=== PATIENT | male | born 1945 | race Caucasian/White ===

== ENCOUNTER → 2017-04-06 | Outpatient (CLI) | payer MEDICARE ==
[2017-04-06 08:13] LABS: INR 3.5 (<1.1); Prothrombin Time 34.4 sec (9.0-12.0)
== END | disposition home or self-care (01) ==
LOC: LABWHC1 07:14
PROVIDERS: ATTEND Family Medicine
DX: Z51.81 Encounter for therapeutic drug level monitoring (principal); Z79.01 Long term (current) use of anticoagulants
CPT/HCPCS: 36415; 85610

== ENCOUNTER 2022-02-12 04:26 | Observation (INO) | payer MEDICARE ==
--- NOTE | 2022-02-12 04:54 | ED ---
Chest Pain HPI - General Chief Complaint: Chest Pain Stated Complaint: Chest Pain Time Seen by Provider: 02/12/22 04:28 Source: patient, RN notes reviewed, old records reviewed Mode of arrival: wheelchair Limitations: no limitations - History of Present Illness Initial Comments: This is a 69-year-old male DF for evaluation of chest pain. Patient is a poor historian patient has history of CAD and high cholesterol. Patient is left- sided chest pain. No shortness of breath no nausea no vomiting no fevers. No diaphoresis. No travel history or sick contacts. MD Complaint: chest pain -: hour(s) Onset: during rest, awoke with symptoms Pain Location: substernal Pain Radiation: none Severity: mild Severity scale (1-10): 2 Quality: tightness, aching Consistency: constant Improves With: nothing Worsens With: nothing Anginal Symptoms: dyspnea Other Symptoms: palpitations Treatments Prior to Arrival: none - Related Data Allergies Allergy/AdvReac Type Severity Reaction Status Date / Time No Known Allergies Allergy Verified 02/12/22 05:39 Review of Systems ROS Statement: Those systems with pertinent positive or pertinent negative responses have been documented in the HPI. ROS Other: All systems not noted in ROS Statement are negative. EKG Findings - EKG Comments: EKG Findings:: EKG is sinus rhythm 89 MS 144 QRS 79 QTc 409 Past Medical History Past Medical History: Coronary Artery Disease (CAD), Hyperlipidemia History of Any Multi-Drug Resistant Organisms: None Reported Past Surgical History: Coronary Bypass/CABG Past Psychological History: No Psychological Hx Reported Smoking Status: Former smoker Past Alcohol Use History: None Reported Past Drug Use History: None Reported General Exam Limitations: no limitations General appearance: alert, in no apparent distress Head exam: Present: atraumatic, normocephalic, normal inspection Eye exam: Present: normal appearance, PERRL, EOMI. Absent: scleral icterus, conjunctival injection, periorbital swelling ENT exam: Present: normal exam, mucous membranes moist Neck exam: Present: normal inspection. Absent: tenderness, meningismus, lymphadenopathy Respiratory exam: Present: normal lung sounds bilaterally. Absent: respiratory distress, wheezes, rales, rhonchi, stridor Cardiovascular Exam: Present: regular rate, normal rhythm, normal heart sounds. Absent: systolic murmur, diastolic murmur, rubs, gallop, clicks GI/Abdominal exam: Present: soft, normal bowel sounds. Absent: distended, tenderness, guarding, rebound, rigid Extremities exam: Present: normal inspection, full ROM, normal capillary refill. Absent: tenderness, pedal edema, joint swelling, calf tenderness Back exam: Present: normal inspection Neurological exam: Present: alert, oriented X3, CN II-XII intact Psychiatric exam: Present: normal affect, normal mood Skin exam: Present: warm, dry, intact, normal color. Absent: rash Course Vital Signs 02/12/22 02/12/22 02/12/22 04:37 05:02 06:17 Temperature 97.9 F Pulse Rate 76 90 95 Respiratory 16 22 18 Rate Blood Pressure 157/96 145/96 146/91 O2 Sat by Pulse 98 100 100 Oximetry - Reevaluation(s) Reevaluation #1: 02/12/22 06:45 Medical record is reviewed Reevaluation #2: 02/12/22 06:45 Patient still with chest pain here in the ER Reevaluation #3: 02/12/22 06:45 Patient informed of results and questions answered - Consultations Consultation #1: Spoke with Dr. Atwood who agrees to admit this patient Chest Pain MDM - MDM 29 male DF for chest pain left-sided chest pain over left heart. Patient does have tenderness to palpation but doesn't mild troponin leak patient is on anticoagulation will, patient will be admitted for chest pain observation Critical Care Time Critical Care Time: Yes Total Critical Care Time: 31 Disposition Clinical Impression: Chest pain Disposition: ADMITTED IP TO THIS [facility] Condition: Undetermined Is patient prescribed a controlled substance at d/c from ED?: No Referrals: Eliecer Sloan MD [Primary Care Provider] - 1-2 days
--- NOTE | 2022-02-12 05:37 | XR ---
EXAMINATION TYPE: XR chest 2V DATE OF EXAM: 02/12/2022 COMPARISON: 11/12/2010 HISTORY: Chest pain TECHNIQUE: FINDINGS: There is pulmonary hyperinflation with flattening of the diaphragm. There are sternal wires. Heart si ze is normal. Costophrenic angles are clear. There are chest leads. There are no hilar masses. There is osteopenia and thoracic mild kyphotic deformity. There is anterior wedging of thoracic vertebra. IMPRESSION: COPD. No acute lung disease. No adverse change.
[2022-02-12 05:55] LABS: ALT 26 U/L (4-49); AST 44 U/L (17-59); African American GFR (CKD) >90 (>60 ml/min/1.73 sqM); Albumin 4.3 g/dL (3.5-5.0); Alkaline Phosphatase 155 U/L (38-126); Anion Gap 9 mmol/L; Blood Urea Nitrogen 12 mg/dL (9-20); Carbon Dioxide 25 mmol/L (22-30); Chloride 104 mmol/L (98-107); Glucose 97 mg/dL (74-99); Lipase 253 U/L (23-300); Magnesium 2.1 mg/dL (1.6-2.3); Non-African American GFR(CKD) 84 (>60 ml/min/1.73 sqM); Sodium 138 mmol/L (137-145); Total Bilirubin 0.5 mg/dL (0.2-1.3); Total Protein 7.2 g/dL (6.3-8.2)
[2022-02-12 06:01] LABS: Basophils # (A) 0.1 k/uL (0-0.2); Basophils % (A) 1 %; Eosinophils # (A) 0.2 k/uL (0-0.7); Eosinophils % (A) 2 %; HCT 46.1 % (39.0-53.0); HGB 15.1 gm/dL (13.0-17.5); Lymphocytes # (A) 1.6 k/uL (1.0-4.8); Lymphocytes % (A) 23 %; MCH 32.5 pg (25.0-35.0); MCHC 32.8 g/dL (31.0-37.0); MCV 99.3 fL (80.0-100.0); Mean Platelet Volume 9.1; Monocytes # (A) 0.5 k/uL (0-1.0); Monocytes % (A) 7 %; Neutrophils # (A) 4.3 k/uL (1.3-7.7); Neutrophils % (A) 64 %; Platelet Count 270 k/uL (150-450); RBC 4.64 m/uL (4.30-5.90); RDW 13.5 % (11.5-15.5); WBC 6.7 k/uL (3.8-10.6)
[2022-02-12 06:19] VITALS: RESP 18
[2022-02-12 06:38] LABS: INR 2.1 (<1.2); Partial Thromboplastin Time 28.6 sec (22.0-30.0); Prothrombin Time 21.4 sec (9.0-12.0)
[2022-02-12] MEDS ORDERED: NITROGLYCERIN SL TABS 0.4 MG TAB SUBLINGUAL PRN (06:44)
[2022-02-12] MEDS ORDERED: ASPIRIN 81 MG PO STA (06:44)
[2022-02-12] MEDS ORDERED: MORPHINE SULFATE 4 MG/ML SYRINGE IV PRN (06:44)
[2022-02-12] MEDS ORDERED: SODIUM CHLORIDE 0.9% 1,000 ML IV SCH (06:45)
[2022-02-12 08:17] VITALS: BP 155/84; PULSE 73; TEMP 98.2
[2022-02-12] MEDS ORDERED: lisinopriL 10 MG TAB PO SCH (09:00)
[2022-02-12] MEDS ORDERED: amLODIPine 2.5 MG TAB PO SCH (09:00)
--- NOTE | 2022-02-12 10:06 | P.CRDCN ---
History of Present Illness History of present illness: HISTORY OF PRESENT ILLNESS: This is a 77-year-old male with a past medical history significant for coronary artery disease with previous CABG, seizure disorder, hypertension, and long-term anticoagulation (patient is unsure of reason). Patient has not been seen in the office since 2012. We have been asked to see the patient in consultation for chest pain. Patient examined at the bedside. Patient states yesterday he began having pain on the left side of his chest. He denied any radiation of the pain denied any shortness of breath. He reports the pain is worse with deep inspiration. He also reports the pain is worse with chest wall palpation. The patient does report having a history of a CABG. He is unsure of what year this was performed and is unsure how many vessels he had performed as well. Patient is also prescribed warfarin on an outpatient basis. The patient is unsure why he is taking this. He denied a history of atrial fibrillation, DVT, or PE. * EKG reveals sinus mechanism with nonspecific ST-T wave changes * Chest xray COPD. No acute lung disease. * Laboratory data: WBC 6.7. Hemoglobin 15.1. Platelet count 270. Sodium 138. Potassium 4.0. BUN 12. Creatinine 0.84. Magnesium 2.1. Troponin negative 2. * Current home cardiac medications include amlodipine 2.5 mg daily, and warfarin 5 mg at night REVIEW OF SYSTEMS: At the time of my exam: CONSTITUTIONAL: Denies fever or chills. HEENT: Denies blurred vision, vision changes, or eye pain. Denies hemoptysis CARDIOVASCULAR: Denies chest pain. Denies orthopnea. Denies PND. Denies palpitations RESPIRATORY: Denies shortness of breath. GASTROINTESTINAL: Denies abdominal pain. Denies nausea or vomiting. HEMATOLOGIC: Denies bleeding disorders. GENITOURINARY: Denies any blood in urine. SKIN: Denies pruitis. Denies rash. PHYSICAL EXAM: VITAL SIGNS: Reviewed. GENERAL: Well-developed in no acute distress. HEENT: Head is normocephalic. Pupils are equal, round. Sclerae anicteric. Mucous membranes of the mouth are moist. Neck supple. No JVD or thyromegaly LUNGS: Respirations even and unlabored. Lungs essentially clear to auscultation bilaterally. HEART: Regular rate and rhythm. S1 and S2 heard. ABDOMEN: Soft. Nondistended. Nontender. EXTREMITIES: Normal range of motion. No clubbing or cyanosis. Peripheral pulses intact. No lower extremity edema NEUROLOGIC: Awake and alert. Oriented x 3. ASSESSMENT: Chest pain, atypical, troponin negative 2, reproducible, pleuritic in nature Coronary artery disease with previous CABG, exact details unknown Long-term anticoagulation, reason unknown to patient Hypertension Seizure disorder PLAN: An acute coronary event has been ruled out Per Dr. Schuler, no need to obtain echo Resume home cardiac medications Begin aspirin 81 mg daily, atorvastatin 20 mg at night, lisinopril 10 mg daily Obtain d-dimer Obtain lipid panel No further inpatient recommendations from a cardiac standpoint. Patient may follow up on an outpatient basis when he is discharged. Nurse practitioner note has been reviewed by physician. Signing provider agrees with the documented findings, assessment, and plan of care. Past Medical History Past Medical History: Coronary Artery Disease (CAD), Hyperlipidemia History of Any Multi-Drug Resistant Organisms: None Reported Past Surgical History: Coronary Bypass/CABG Past Psychological History: No Psychological Hx Reported Smoking Status: Former smoker Past Alcohol Use History: None Reported Past Drug Use History: None Reported - Past Family History Father Family Medical History: Coronary Artery Disease (CAD) Additional Family Medical History / Comment(s): CABG Mother Family Medical History: No Reported History Medications and Allergies Home Medications Medication Instructions Recorded Confirmed Type ALPRAZolam [Xanax] 0.5 mg PO TID PRN 02/12/22 02/12/22 History Ascorbic Acid [Vitamin C] 1,000 mg PO DAILY 02/12/22 02/12/22 History Famotidine [Pepcid] 20 mg PO DAILY 02/12/22 02/12/22 History [place]-3 Fatty Acids [[place]-3] 1,000 mg PO DAILY 02/12/22 02/12/22 History Phenytoin Sodium Extended 200 mg PO BID 02/12/22 02/12/22 History [Dilantin] Tamsulosin HCl [Flomax] 0.4 mg PO DAILY 02/12/22 02/12/22 History Turmeric Root Extract [Turmeric] 500 mg PO DAILY 02/12/22 02/12/22 History Vitamin A [Vitamin A (8,000 Units 2,400 mcg PO DAILY 02/12/22 02/12/22 History = 2,400 MCG)] Vitamin E (Dl,Tocopheryl Acet) 400 unit PO DAILY 02/12/22 02/12/22 History [Vitamin E (400 Iu = 180 mg)] Warfarin [Coumadin] 5 mg PO HS 02/12/22 02/12/22 History amLODIPine [Norvasc] 2.5 mg PO DAILY 02/12/22 02/12/22 History Allergies Allergy/AdvReac Type Severity Reaction Status Date / Time No Known Allergies Allergy Verified 02/12/22 07:39 Physical Exam Vitals: Vital Signs Temp Pulse Resp BP Pulse Ox 02/12/22 07:27 78 18 153/93 97 02/12/22 06:17 95 18 146/91 100 02/12/22 05:02 90 22 145/96 100 02/12/22 04:37 97.9 F 76 16 157/96 98 Intake and Output 02/11/22 02/12/22 02/12/22 22:59 06:59 14:59 Other: Weight 63.049 kg Results 02/12/22 04:52 02/12/22 04:52 Cardiac Enzymes 02/12/22 02/12/22 Range/Units 04:52 04:52 AST 44 (17-59) U/L Troponin I 0.014 (0.000-0.034) ng/mL Coagulation 02/12/22 Range/Units 04:52 PT 21.4 H (9.0-12.0) sec APTT 28.6 (22.0-30.0) sec CBC 02/12/22 Range/Units 04:52 WBC 6.7 (3.8-10.6) k/uL RBC 4.64 (4.30-5.90) m/uL Hgb 15.1 (13.0-17.5) gm/dL Hct 46.1 (39.0-53.0) % Plt Count 270 (150-450) k/uL Comprehensive Metabolic Panel 02/12/22 Range/Units 04:52 Sodium 138 (137-145) mmol/L Potassium 4.0 (3.5-5.1) mmol/L Chloride 104 (98-107) mmol/L Carbon Dioxide 25 (22-30) mmol/L BUN 12 (9-20) mg/dL Creatinine 0.84 (0.66-1.25) mg/dL Glucose 97 (74-99) mg/dL Calcium 9.0 (8.4-10.2) mg/dL AST 44 (17-59) U/L ALT 26 (4-49) U/L Alkaline Phosphatase 155 H (38-126) U/L Total Protein 7.2 (6.3-8.2) g/dL Albumin 4.3 (3.5-5.0) g/dL Current Medications Generic Name Dose Route Start Last Admin Trade Name Freq PRN Reason Stop Dose Admin Aspirin 325 mg 02/13/22 09:00 Aspirin 325 Mg Tab PO DAILY ROYAL Sodium Chloride 1,000 mls @ 100 mls/hr 02/12/22 06:45 02/12/22 07:08 Saline 0.9% IV 100 mls/hr .Q10H ROYAL Administration Morphine Sulfate 4 mg 02/12/22 06:44 02/12/22 07:06 Morphine Sulfate 4 Mg/Ml Syringe IV 4 mg Q4HR PRN Administration Chest Pain Nitroglycerin 0.4 mg 02/12/22 06:44 Nitroglycerin Sl Tabs 0.4 Mg Tab SUBLINGUAL Q5M PRN Chest Pain Intake and Output 02/11/22 02/12/22 02/12/22 22:59 06:59 14:59 Other: Weight 63.049 kg 02/12/22 04:52 02/12/22 04:52
--- NOTE | 2022-02-12 13:36 | P.HPIM ---
History of Present Illness H&P Date: 02/12/22 (This document was of both his H&P and discharge summary) History of present illness 77 years old male patient of Dr. Sloan with past medical history of coronary artery disease with previous coronary artery bypass grafting, seizure disorder, hypertension and long-term anticoagulation unknown reason no previous hospital admissions came in with chest pain that started after his job jumped on his chest. Chest pain is located in the left substernal area, pressure-like sensation nonradiating, not associated with shortness of breath. Patient denies any pain with inspiration. He has not been seen by cardiology since 2012. EKG suggestive of sinus rhythm with nonspecific ST or T-wave changes. Chest x-ray negative for acute lung process. Labs were evaluated hemoglobin 15, WBC 6.7 platelet 270 sodium 138 potassium 4 BUN 12 creatinine 0.8 magnesium 2.1 troponin 2 normal. ROS Constitutional: Denies chills, Denies fever, Denies lethargy, Denies malaise, Denies poor appetite, Denies weakness, Denies weight loss Eyes: denies decreased vision, denies diplopia, denies discharge, denies pain Ears: deny: decreased hearing Ears, nose, mouth and throat: Denies dental pain, Denies headache, Denies nasal discharge, Denies nose pain Cardiovascular: Endorses chest pain, Denies decreased exercise tolerance, Denies edema, Denies high blood pressure, Denies irregular heart beat, Denies palpitations, Denies paroxysmal nocturnal dyspnea, Denies rapid heart beat, Denies shortness of breath Respiratory: Denies congestion, Denies cough, Denies cough with sputum, Denies dyspnea, Denies home oxygen, Denies wheezing Gastrointestinal: Denies abdominal pain, Denies change in bowel habits, Denies coffee ground emesis, Denies early satiety, Denies excessive gas, Denies heartburn, Denies hematemesis, Denies hematochezia, Denies loss of appetite, Denies nausea, Denies vomiting Genitourinary: Denies dysuria, Denies flank pain, Denies kidney stones, Denies menorrhagia, Denies urgency, Denies urinary frequency Musculoskeletal: Denies gait dysfunction, Denies limitation of motion, Denies morning stiffness, Denies muscle cramps Integumentary: Denies rash, Denies wounds, Denies brittle nails, Denies change in hair/nails, Denies darkening of skin Neurological: Denies balance difficulties, Denies change in speech, Denies double vision, Denies gait dysfunction, Denies loss of vision, Denies motor disturbance, Denies numbness, Denies paralysis, Denies paresthesias, Denies seizures Psychiatric: Denies anxiety, Denies depression Endocrine: Denies excessive sweating, Denies excessive thirst, Denies high blood sugars, Denies palpitations Hematologic/Lymphatic: Denies easy bruising, Denies lymphadenopathy Social history Nonsmoker nondrinker no illicit drug use no marijuana use Family history Mother of old age in her 80s, father of old age. No significant medical history. Sister is healthy. Patient has 1 son who is healthy Physical exam - Constitutional General appearance: cooperative, no acute distress, thin - EENT Eyes: anicteric sclerae, PERRLA, normal appearance ENT: hearing grossly normal - Neck Neck: no lymphadenopathy, normal ROM, no other, no rigidity, no stridor, no thyromegaly - Respiratory Respiratory: bilateral: CTA, negative: diminished, dullness, rales, rhonchi, tender to touch - Cardiovascular Rhythm: regular Heart sounds: normal: S1, S2 Abnormal Heart Sounds: no systolic murmur, no diastolic murmur, no rub, no S3 Gallop, no S4 Gallop, no click, no other - Gastrointestinal General gastrointestinal: normal bowel sounds, soft - Integumentary Integumentary: no rash - Neurologic Neurologic: No gross motor or sensory deficit - Musculoskeletal Musculoskeletal: gait normal, strength equal bilaterally - Psychiatric Psychiatric: A&O x's 3, appropriate affect Assessment and plan #1 acute chest pain likely atypical secondary to trauma. ACS ruled out. Troponin 2 negative EKG negative for STEMI. Initiated on aspirin, Lipitor and lisinopril. Follow up with cardiology as outpatient. #2 hypertension blood pressure uncontrolled. Lisinopril 10 mg by mouth daily added continue Norvasc at 2.5 mg by mouth daily #3 seizure disorder continue Dilantin 200 mg twice daily #4 BPH continue Flomax 0.4 mg daily. 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 unknown reason #6 GERD Pepcid 20 mg by mouth daily CODE STATUS full code Disposition home today Past Medical History Past Medical History: Coronary Artery Disease (CAD), Hyperlipidemia Additional Past Medical History / Comment(s): DVT, seizures/last one 2008, diverticular disease, colon polyps-benign, celiac's disease, BPH, bronchitis, pt states L leg feels "heavy past couple years." History of Any Multi-Drug Resistant Organisms: None Reported Past Surgical History: Coronary Bypass/CABG Additional Past Surgical History / Comment(s): 1994 CABG 2 vessel, L side of neck "filter"/pt and family states d/t blood clot, EGD, colonoscopies, hemorrhoidectomy, L inguinal hernia repair, bilateral shoulder surgeries (pt states shoulders use to dislocate when he had a seizure, L eye cat removed. Past Anesthesia/Blood Transfusion Reactions: No Reported Reaction Past Psychological History: No Psychological Hx Reported Smoking Status: Former smoker Past Alcohol Use History: None Reported Past Drug Use History: None Reported - Past Family History Father Family Medical History: Coronary Artery Disease (CAD) Additional Family Medical History / Comment(s): CABG Mother Family Medical History: No Reported History Medications and Allergies Home Medications Medication Instructions Recorded Confirmed Type ALPRAZolam [Xanax] 0.5 mg PO TID PRN 02/12/22 02/12/22 History Ascorbic Acid [Vitamin C] 1,000 mg PO DAILY 02/12/22 02/12/22 History Aspirin 81 mg PO DAILY 02/12/22 Rx Atorvastatin [Lipitor] 20 mg PO HS #30 tab 02/12/22 Rx Famotidine [Pepcid] 20 mg PO DAILY 02/12/22 02/12/22 History [place]-3 Fatty Acids [[place]-3] 1,000 mg PO DAILY 02/12/22 02/12/22 History Phenytoin Sodium Extended 200 mg PO BID 02/12/22 02/12/22 History [Dilantin] Tamsulosin HCl [Flomax] 0.4 mg PO DAILY 02/12/22 02/12/22 History Turmeric Root Extract [Turmeric] 500 mg PO DAILY 02/12/22 02/12/22 History Vitamin A [Vitamin A (8,000 Units 2,400 mcg PO DAILY 02/12/22 02/12/22 History = 2,400 MCG)] Vitamin E (Dl,Tocopheryl Acet) 400 unit PO DAILY 02/12/22 02/12/22 History [Vitamin E (400 Iu = 180 mg)] Warfarin [Coumadin] 5 mg PO HS 02/12/22 02/12/22 History amLODIPine [Norvasc] 2.5 mg PO DAILY 02/12/22 02/12/22 History lisinopriL [Zestril] 10 mg PO DAILY #30 tab 02/12/22 Rx Allergies Allergy/AdvReac Type Severity Reaction Status Date / Time No Known Allergies Allergy Verified 02/12/22 07:39 Physical Exam Vitals: Vital Signs Temp Pulse Pulse Resp BP BP Pulse Ox 02/12/22 08:16 98.2 F 73 18 155/84 99 02/12/22 07:27 78 18 153/93 97 02/12/22 06:17 95 18 146/91 100 02/12/22 05:02 90 22 145/96 100 02/12/22 04:37 97.9 F 76 16 157/96 98 Intake and Output 02/11/22 02/12/22 02/12/22 22:59 06:59 14:59 Other: Weight 63.049 kg 63.049 kg Results CBC & Chem 7: 02/12/22 04:52 02/12/22 04:52 Labs: Abnormal Lab Results - Last 24 Hours (Table) 02/12/22 02/12/22 Range/Units 04:52 04:52 PT 21.4 H (9.0-12.0) sec INR 2.1 H (<1.2) Alkaline Phosphatase 155 H (38-126) U/L Thrombosis Risk Factor Assmnt - Choose All That Apply Any of the Below Risk Factors Present?: Yes Other Risk Factors: Yes Each Risk Factor Represents 3 Points: Age 75 years or older, History of DVT/PE Other congenital or acquired thrombophilia - If yes, enter type in comment: No Thrombosis Risk Factor Assessment Total Risk Factor Score: 6 Thrombosis Risk Factor Assessment Level: High Risk
[2022-02-12] MEDS ORDERED: ATORVASTATIN 20 MG TAB PO SCH (21:00)
[2022-02-12] MEDS ORDERED: WARFARIN 5 MG TAB PO SCH (21:00)
[2022-02-13] MEDS ORDERED: ASPIRIN 81 MG PO SCH (09:00)
[2022-02-13] MEDS ORDERED: ASPIRIN 325 MG TAB PO SCH (09:00)
== END 2022-02-12 13:13 | disposition home or self-care (01) ==
LOC: EC 04:26 → 6NMEDSUR 06:44
PROVIDERS: ADMIT Internal Medicine Geriatric Medicine; ATTEND Internal Medicine Geriatric Medicine
DX: R07.89 Other chest pain (principal); I25.10 Atherosclerotic heart disease of native coronary artery without angina pectoris; I10 Essential (primary) hypertension; J44.9 Chronic obstructive pulmonary disease, unspecified; E78.00 Pure hypercholesterolemia, unspecified; E78.5 Hyperlipidemia, unspecified; R00.2 Palpitations; G40.909 Epilepsy, unspecified, not intractable, without status epilepticus; K90.0 Celiac disease; N40.0 Benign prostatic hyperplasia without lower urinary tract symptoms; K21.9 Gastro-esophageal reflux disease without esophagitis; K57.90 Diverticulosis of intestine, part unspecified, without perforation or abscess without bleeding; Z79.01 Long term (current) use of anticoagulants; Z79.899 Other long term (current) drug therapy; Z95.1 Presence of aortocoronary bypass graft; Z86.010 Personal history of colon polyps; Z87.891 Personal history of nicotine dependence; Z86.718 Personal history of other venous thrombosis and embolism; Z98.42 Cataract extraction status, left eye; Z95.828 Presence of other vascular implants and grafts; Z98.890 Other specified postprocedural states; Z82.49 Family history of ischemic heart disease and other diseases of the circulatory system
CPT/HCPCS: 96374; 99291; 36415; 93005; 85379; 83880; 80053; 83690; 83735; 84484; 85025; 85610; 85730; 83036; 71046; G0378; J2270

== ENCOUNTER 2023-07-15 23:05 | Observation (INO) | payer MEDICARE ==
[2023-07-15] MEDS ORDERED: SODIUM CHLORIDE 0.9% 1,000 ML IV STA (23:23)
--- NOTE | 2023-07-15 23:38 | ED ---
Syncope HPI - General Chief Complaint: Syncope Stated Complaint: Syncope Time Seen by Provider: 07/15/23 23:23 Source: patient, EMS, RN notes reviewed, old records reviewed Mode of arrival: EMS Limitations: no limitations - History of Present Illness Initial Comments: This is a 78-year-old male who presents after a syncopal event today. Patient has not been seen by family for about 5 days the daughter went over to stay in the patient passed out when she entered the door. He became very lightheaded dizzy with the ground but retained consciousness. Patient admits to severe weakness but denies chest pain or shortness of breath does admit to headache. Family does think he may have a little slurred speech but states they did neurological testing at home which they believe was normal mother does work for a neurologist in town. Patient aside from weakness has no current complaints MD Complaint: loss of consciousness, collapsed (But did not loose faculties) -: hour(s) Prodromal Symptoms: headache, lightheaded Description of Event: other (A shunt does have seizure-like patient does have seizure history but no seizure-like activity today) -: second(s) Witnessed: yes - by bystander History: seizure disorder, previous syncopal episode Context: during exertion Treatments Prior to Arrival: none - Related Data Home Medications Medication Instructions Recorded Confirmed Famotidine [Pepcid] 20 mg PO BID 02/12/22 07/16/23 Phenytoin Sodium Extended 200 mg PO BID 02/12/22 07/16/23 [Dilantin] Tamsulosin HCl [Flomax] 0.8 mg PO DAILY 02/12/22 07/16/23 amLODIPine [Norvasc] 2.5 mg PO DAILY 02/12/22 07/16/23 Previous Rx's Medication Instructions Recorded Atorvastatin [Lipitor] 20 mg PO HS #30 tab 02/12/22 Apixaban [Eliquis] 5 mg PO BID #60 tab 07/17/23 Allergies Allergy/AdvReac Type Severity Reaction Status Date / Time gluten Allergy Nausea & Verified 07/17/23 10:51 Vomiting & Diarrhea Review of Systems ROS Statement: Those systems with pertinent positive or pertinent negative responses have been documented in the HPI. ROS Other: All systems not noted in ROS Statement are negative. Past Medical History Past Medical History: Coronary Artery Disease (CAD), Hyperlipidemia Additional Past Medical History / Comment(s): DVT, seizures/last one 2008, di verticular disease, colon polyps-benign, celiac's disease, BPH, bronchitis, pt states L leg feels "heavy past couple years." History of Any Multi-Drug Resistant Organisms: None Reported Past Surgical History: Coronary Bypass/CABG Additional Past Surgical History / Comment(s): 1994 CABG 2 vessel, L side of neck "filter"/pt and family states d/t blood clot, EGD, colonoscopies, hemorrhoidectomy, L inguinal hernia repair, bilateral shoulder surgeries (pt states shoulders use to dislocate when he had a seizure, L eye cat removed. Past Anesthesia/Blood Transfusion Reactions: No Reported Reaction Past Psychological History: No Psychological Hx Reported Smoking Status: Former smoker Past Alcohol Use History: None Reported Past Drug Use History: None Reported - Past Family History Father Family Medical History: Coronary Artery Disease (CAD) Additional Family Medical History / Comment(s): CABG Mother Family Medical History: No Reported History General Exam Limitations: no limitations General appearance: alert, in no apparent distress, anxious Head exam: Present: atraumatic, normocephalic, normal inspection Eye exam: Present: normal appearance, PERRL, EOMI. Absent: scleral icterus, conjunctival injection, periorbital swelling ENT exam: Present: normal exam, mucous membranes moist Neck exam: Present: normal inspection. Absent: tenderness, meningismus, lymphadenopathy Respiratory exam: Present: normal lung sounds bilaterally. Absent: respiratory distress, wheezes, rales, rhonchi, stridor Cardiovascular Exam: Present: regular rate, normal rhythm, normal heart sounds. Absent: systolic murmur, diastolic murmur, rubs, gallop, clicks GI/Abdominal exam: Present: soft, normal bowel sounds. Absent: distended, tenderness, guarding, rebound, rigid Extremities exam: Present: normal inspection, full ROM, normal capillary refill. Absent: tenderness, pedal edema, joint swelling, calf tenderness Back exam: Present: normal inspection Neurological exam: Present: alert, oriented X3, CN II-XII intact Psychiatric exam: Present: normal affect, normal mood Skin exam: Present: warm, dry, intact, normal color. Absent: rash Course Vital Signs 07/15/23 07/16/23 07/16/23 23:18 00:20 02:35 Temperature 97.6 F Pulse Rate 61 61 60 Pulse Rate [ Pulse Oximetery ] Respiratory 18 16 16 Rate Blood Pressure 170/82 149/75 138/79 Blood Pressure [Right Arm] O2 Sat by Pulse 98 98 97 Oximetry 07/16/23 07/16/23 07/16/23 04:00 06:00 08:14 Temperature Pulse Rate 60 53 L Pulse Rate [ Pulse Oximetery ] Respiratory 16 Rate Blood Pressure 114/69 137/77 Blood Pressure 148/82 [Right Arm] O2 Sat by Pulse 98 Oximetry 07/16/23 07/16/23 07/16/23 08:16 08:18 08:36 Temperature Pulse Rate 68 Pulse Rate [ Pulse Oximetery ] Respiratory 18 Rate Blood Pressure 148/82 Blood Pressure 129/88 144/85 [Right Arm] O2 Sat by Pulse 97 Oximetry 07/16/23 07/16/23 07/16/23 11:23 14:15 14:18 Temperature 98.6 F Pulse Rate 58 L 54 L 71 Pulse Rate [ Pulse Oximetery ] Respiratory 18 16 18 Rate Blood Pressure 106/86 135/76 Blood Pressure [Right Arm] O2 Sat by Pulse 97 96 93 L Oximetry 07/16/23 14:22 Temperature 97.3 F L Pulse Rate Pulse Rate [ 54 L Pulse Oximetery ] Respiratory 17 Rate Blood Pressure Blood Pressure 135/76 [Right Arm] O2 Sat by Pulse 97 Oximetry - Reevaluation(s) Reevaluation #1: 07/16/23 00:35 Medical records reviewed 07/16/23 00:35 Patient is not code stroke secondary to NIH of 0 Unknown onset of symptoms Reevaluation #2: 07/16/23 00:35 Patient has no real Reevaluation #3: 07/16/23 00:35 Patient informed results and questions answered Reevaluation #4: 07/16/23 00:35 Was pt. sent in by a medical professional or institution (, PA, POWERTR[employer] CONTROL SYSTEMS ENGINEER, urgent care, hospital, or care home...) When possible be specific @ -no Did you speak to anyone other than the patient for history (EMS, parent, family, police, friend...)? What history was obtained from this source @ -no Did you review nursing and triage notes (agree or disagree)? Why? @ -agree Are old charts reviewed (outside hosp., previous admission, EMS record, old EKG, old radiological studies, urgent care reports/EKG's, care home records)? Report findings @ -yes Differential Diagnosis (chest pain, altered mental status, abdominal pain women, abdominal pain men, vaginal bleeding, weakness, fever, dyspnea, syncope, headache, dizziness, GI bleed, back pain, seizure, CVA, palpatations, mental health, musculoskeletal)? @ -prior EKG interpreted by me (3pts min.). @ -yes X-rays interpreted by me (1pt min.). @ -yes CT interpreted by me (1pt min.). @ -yes U/S interpreted by me (1pt. min.). @ -no What testing was considered but not performed or refused? (CT, X-rays, U/S, labs)? Why? @ -none What meds were considered but not given or refused? Why? @ -none Did you discuss the management of the patient with other professionals (harper aburto i.e. , PA, POWERTR[employer] SYSTEMS ENGINEER, lab, RT, psych nurse, social studies teacher, art department head, teacher, civil preparedness training officer, medical case worker)? Give summary @ -no Was smoking cessation discussed for >3mins.? @ -no Was critical care preformed (if so, how long)? @ -yes31 Were there social determinants of health that impacted care today? How? (Homelessness, low income, unemployed, alcoholism, drug addiction, transportation, low edu. Level, literacy, decrease access to med. care, [facility], rehab)? @ -none Was there de-escalation of care discussed even if they declined (Discuss DNR or withdrawal of care, Hospice)? DNR status @ -no What co-morbidities impacted this encounter? (DM, HTN, Smoking, COPD, CAD, Cancer, CVA, ARF, Chemo, Hep., AIDS, mental health diagnosis, sleep apnea, morbid obesity)? @ -none Was patient admitted / discharged? Hospital course, mention meds given and route, prescriptions, significant lab abnormalities, going to OR and other pertinent info. @ - 78 male to the emergency department will be admitted with a syncopal event, patient also has some slurred speech it waxed and waned. History of stroke, patient be admitted for neurology evaluation and treatment. Admitted Undiagnosed new problem with uncertain prognosis? @ -no Drug Therapy requiring intensive monitoring for toxicity (Heparin, Nitro, Insulin, Cardizem)? @ -no Were any procedures done? @ -no Diagnosis/symptom? @ -Syncope, CVA Acute, or Chronic? @ -Acute Uncomplicated (without systemic symptoms) or Complicated (systemic symptoms)? @ -Complicated Side effects of treatment? @ -no Exacerbation, Progression, or Severe Exacerbation? @ -exacerbation Poses a threat to life or bodily function? How? (Chest pain, USA, ME, pneumonia, PE, COPD, DKA, ARF, appy, cholecystitis, CVA, Diverticulitis, Homicidal, Suicidal, threat to staff... and all critical care pts) @ -yes with severe syncopal event or CVA Reevaluation #5: 07/16/23 00:35 Differential Syncope: Valvular disease, hypertrophic cardiomyopathy, pulmonary embolism, tamponade, tachycardia, bradycardia, ME, hypovolemia, hemorrhage, dissection, anemia, intracranial hemorrhage, seizure, hypoglycemia, carbon monoxide poisoning, this is not meant to be an all-inclusive list. - Consultations Consultation #1: Spoke with [facility] who agree to admit this patient EKG Findings - EKG Comments: EKG Findings:: EKG is sinus 61 SD 132 QRS 105 QTC 393 - EKG Results: EKG: interpreted by KRISTEN Medical Decision Making - Medical Decision Making 78 male to the emergency department will be admitted with a syncopal event, patient also has some slurred speech it waxed and waned. History of stroke, patient be admitted for neurology evaluation and treatment. - Lab Data Result diagrams: 07/15/23 23:34 07/17/23 06:42 Lab Results 07/15/23 07/15/23 07/15/23 Range/Units 23:34 23:34 23:34 WBC 8.2 (3.8-10.6) k/uL RBC 4.20 L (4.30-5.90) m/uL Hgb 13.1 (13.0-17.5) gm/dL Hct 40.7 (39.0-53.0) % MCV 97.0 (80.0-100.0) fL MCH 31.1 (25.0-35.0) pg MCHC 32.1 (31.0-37.0) g/dL RDW 13.8 (11.5-15.5) % Plt Count 197 (150-450) k/uL MPV 8.9 Neutrophils % 71 % Lymphocytes % 19 % Monocytes % 6 % Eosinophils % 2 % Basophils % 0 % Neutrophils # 5.8 (1.3-7.7) k/uL Lymphocytes # 1.6 (1.0-4.8) k/uL Monocytes # 0.5 (0-1.0) k/uL Eosinophils # 0.1 (0-0.7) k/uL Basophils # 0.0 (0-0.2) k/uL PT 11.7 (9.0-12.0) sec INR 1.1 (<1.2) APTT 25.1 (22.0-30.0) sec D-Dimer 0.50 (<0.60) mg/L FEU Sodium 141 (137-145) mmol/L Potassium 3.9 (3.5-5.1) mmol/L Chloride 114 H (98-107) mmol/L Carbon Dioxide 18 L (22-30) mmol/L Anion Gap 9 mmol/L BUN 17 (9-20) mg/dL Creatinine 0.91 (0.66-1.25) mg/dL Est GFR (CKD-EPI)AfAm >90 (>60 ml/min/1.73 sqM) Est GFR (CKD-EPI)NonAf 80 (>60 ml/min/1.73 sqM) Glucose 104 H (74-99) mg/dL Calcium 7.9 L (8.4-10.2) mg/dL Magnesium 2.0 (1.6-2.3) mg/dL Total Bilirubin 0.2 (0.2-1.3) mg/dL AST 27 (17-59) U/L ALT 17 (4-49) U/L Alkaline Phosphatase 100 (38-126) U/L Troponin I (0.000-0.034) ng/mL Total Protein 6.5 (6.3-8.2) g/dL Albumin 3.8 (3.5-5.0) g/dL 07/15/23 Range/Units 23:34 WBC (3.8-10.6) k/uL RBC (4.30-5.90) m/uL Hgb (13.0-17.5) gm/dL Hct (39.0-53.0) % MCV (80.0-100.0) fL MCH (25.0-35.0) pg MCHC (31.0-37.0) g/dL RDW (11.5-15.5) % Plt Count (150-450) k/uL MPV Neutrophils % % Lymphocytes % % Monocytes % % Eosinophils % % Basophils % % Neutrophils # (1.3-7.7) k/uL Lymphocytes # (1.0-4.8) k/uL Monocytes # (0-1.0) k/uL Eosinophils # (0-0.7) k/uL Basophils # (0-0.2) k/uL PT (9.0-12.0) sec INR (<1.2) APTT (22.0-30.0) sec D-Dimer (<0.60) mg/L FEU Sodium (137-145) mmol/L Potassium (3.5-5.1) mmol/L Chloride (98-107) mmol/L Carbon Dioxide (22-30) mmol/L Anion Gap mmol/L BUN (9-20) mg/dL Creatinine (0.66-1.25) mg/dL Est GFR (CKD-EPI)AfAm (>60 ml/min/1.73 sqM) Est GFR (CKD-EPI)NonAf (>60 ml/min/1.73 sqM) Glucose (74-99) mg/dL Calcium (8.4-10.2) mg/dL Magnesium (1.6-2.3) mg/dL Total Bilirubin (0.2-1.3) mg/dL AST (17-59) U/L ALT (4-49) U/L Alkaline Phosphatase (38-126) U/L Troponin I <0.012 (0.000-0.034) ng/mL Total Protein (6.3-8.2) g/dL Albumin (3.5-5.0) g/dL - EKG Data -: EKG Interpreted by Me - Radiology Data Radiology results: report reviewed (CT brain CT angios had neck chest x-ray negative for acute disease), image reviewed Critical Care Time Critical Care Time: Yes Total Critical Care Time: 31 Disposition Clinical Impression: Vasovagal syncope, Syncope, TIA (transient ischemic attack), Weakness, Headache, Dehydration Disposition: ADMITTED IP TO THIS [facility] Condition: Fair Is patient prescribed a controlled substance at d/c from ED?: No Time of Disposition: 00:30
[2023-07-15 23:52] LABS: Basophils % (A) 0 %; Eosinophils # (A) 0.1 k/uL (0-0.7); Eosinophils % (A) 2 %; HCT 40.7 % (39.0-53.0); HGB 13.1 gm/dL (13.0-17.5); Lymphocytes # (A) 1.6 k/uL (1.0-4.8); Lymphocytes % (A) 19 %; MCH 31.1 pg (25.0-35.0); MCHC 32.1 g/dL (31.0-37.0); Mean Platelet Volume 8.9; Monocytes # (A) 0.5 k/uL (0-1.0); Monocytes % (A) 6 %; Neutrophils # (A) 5.8 k/uL (1.3-7.7); Neutrophils % (A) 71 %; Platelet Count 197 k/uL (150-450); RDW 13.8 % (11.5-15.5); WBC 8.2 k/uL (3.8-10.6)
[2023-07-16 00:05] LABS: INR 1.1 (<1.2); Partial Thromboplastin Time 25.1 sec (22.0-30.0); Prothrombin Time 11.7 sec (9.0-12.0)
[2023-07-16 00:17] LABS: ALT 17 U/L (4-49); AST 27 U/L (17-59); African American GFR (CKD) >90 (>60 ml/min/1.73 sqM); Albumin 3.8 g/dL (3.5-5.0); Alkaline Phosphatase 100 U/L (38-126); Anion Gap 9 mmol/L; Blood Urea Nitrogen 17 mg/dL (9-20); Calcium 7.9 mg/dL (8.4-10.2); Carbon Dioxide 18 mmol/L (22-30); Chloride 114 mmol/L (98-107); Glucose 104 mg/dL (74-99); Non-African American GFR(CKD) 80 (>60 ml/min/1.73 sqM); Potassium 3.9 mmol/L (3.5-5.1); Sodium 141 mmol/L (137-145); Total Bilirubin 0.2 mg/dL (0.2-1.3); Total Protein 6.5 g/dL (6.3-8.2)
[2023-07-16] MEDS ORDERED: ONDANSETRON 4 MG/2 ML VIAL IVP PRN (00:30)
[2023-07-16] MEDS ORDERED: NALOXONE 0.4 MG/ML 1 ML VIAL IV PRN (00:30)
[2023-07-16] MEDS ORDERED: MORPHINE SULFATE 4 MG/ML SYRINGE IV PRN (00:30)
--- NOTE | 2023-07-16 01:44 | XR ---
EXAM: XR Chest, 1 View CLINICAL HISTORY: ITS.REASON XR Reason: weak TECHNIQUE: Frontal view of the chest. COMPARISON: No relevant prior studies available. FINDINGS: Lungs: Unremarkable. No consolidation. Pleural space: Unremarkable. No pneumothorax. Heart: Cardiomegaly. Mediastinum: Unremarkable. Bones/joints: Sternotomy wires. Upper abdomen: IVC filter. IMPRESSION: No acute findings in the chest.
--- NOTE | 2023-07-16 01:46 | CT ---
EXAM: CT Head Without Intravenous Contrast CLINICAL HISTORY: ITS.REASON CT Reason: slurred speech TECHNIQUE: Axial computed tomography images of the head/brain without intravenous contrast. CTDI is 48.8 mGy and DLP is 1708.1 mGy-cm. This CT exam was performed using one or more of the following dose reduction techniques: automated exposure control, adjustment of the mA and/or kV according to patient size, and/or use of iterative reconstruction technique. COMPARISON: No relevant prior studies available. FINDINGS: No acute intracranial hemorrhage. No midline shift or mass effect. The territorial page-white matter differentiation is maintained throughout. Age-related cerebral volume loss. Periventricular and subcortical white matter hypoattenuation, consistent with chronic microangiopathy. The visualized orbits appear grossly unremarkable. The calvarium is intact. The visualized paranasal sinuses and mastoid air cells are grossly clear. IMPRESSION: No acute intracranial hemorrhage, midline shift, or mass effect.
--- NOTE | 2023-07-16 02:13 | CT ---
EXAM: CT Angiography Head With Intravenous Contrast CLINICAL HISTORY: ITS.REASON CT Reason: speech TECHNIQUE: Axial computed tomographic angiography images of the head with intravenous contrast. CTDI is 25.1 mGy and DLP is 248.9 mGy-cm. This CT exam was performed using one or more of the following dose reduction techniques: automated exposure control, adjustment of the mA and/or kV according to patient size, and/or use of iterative reconstruction technique. MIP reconstructed images were created and reviewed. COMPARISON: No relevant prior studies available. FINDINGS: Right internal carotid artery: Intracranial segment is patent with no significant stenosis. No aneurysm. Right anterior cerebral artery: No occlusion or significant stenosis. No aneurysm. Right middle cerebral artery: No occlusion or significant stenosis. No aneurysm. Right posterior cerebral artery: No occlusion or significant stenosis. No aneurysm. Right vertebral artery: Unremarkable. Left internal carotid artery: Intracranial segment is patent with no significant stenosis. No aneurysm. Left anterior cerebral artery: No occlusion or significant stenosis. No aneurysm. Left middle cerebral artery: Mild left mid FORMULA CHECKER stenosis. No aneurysm. Left posterior cerebral artery: Left vertebral artery: Unremarkable. Basilar artery: No occlusion or significant stenosis. No aneurysm. IMPRESSION: Mild left mid FORMULA CHECKER stenosis. No occlusion. EXAM: CT Angiography Neck With Intravenous Contrast CLINICAL HISTORY: ITS.REASON CT Reason: speech TECHNIQUE: Axial computed tomographic angiography images of the neck with intravenous contrast. CTDI is 25.1 mGy and DLP is 248.9 mGy-cm. This CT exam was performed using one or more of the following dose reduction techniques: automated exposure control, adjustment of the mA and/or kV according to patient size, and/or use of iterative reconstruction technique. MIP reconstructed images were created and reviewed. COMPARISON: No relevant prior studies available. FINDINGS: Mild atherosclerotic plaques bilaterally. VASCULATURE: Right common carotid artery: No significant stenosis. No dissection. Right internal carotid artery: Mild stenosis. No dissection. Right vertebral artery: Moderate right vertebral artery origin stenosis from atherosclerosis. Left common carotid artery: No significant stenosis. No dissection. Left internal carotid artery: Extracranial has no significant stenosis. No dissection. Left vertebral artery: No significant stenosis. No dissection. NECK: Bones/joints: No acute fracture. No dislocation. 1.7 cm left and 1.4 cm right thyroid gland nodules. Other smaller nodules are also seen bilaterally. CAROTID STENOSIS REFERENCE USING NASCET CRITERIA: % ICA stenosis = (1 - narrowest ICA diameter/diameter of distal cervical ICA) x 100. Mild - <50% stenosis. Moderate - 50-69% stenosis. Severe - 70-94% stenosis. Near occlusion - 95-99% stenosis. Occluded - 100% stenosis. IMPRESSION: Moderate right vertebral artery origin stenosis from atherosclerosis. Mild right proximal ICA stenosis from atherosclerosis. 1.7 cm left and 1.4 cm right thyroid gland nodules. Other smaller nodules are also seen bilaterally. Correlate with outpatient ultrasound.
--- NOTE | 2023-07-16 08:21 | P.HPIM ---
History of Present Illness This is a pleasant 78 years old male with past medical history of hyperlipidemia, hypertension, history of deep venous thrombosis on Coumadin celiac disease, BPH, coronary artery disease status post CABG Presents because of syncopal episode. Patient states that he was sleeping yesterday night when he woke up, he was drowsy and went to open the door for his granddaughter he passed out at the door steps, he was on the floor for a few minutes and workup with no confusion. No seizure-like activity or urine or bowel incontinence, no tongue biting. per Records surface patient was suspected by family however patient denies any blurred vision slurred speech. He complains from left finger numbness 3 weeks, and left leg weakness and he could not specify for how long. No tingling or numbness in the legs. Patient reports very severe diarrhea yesterday, in the afternoon it was every 5 minutes with small amount. He has some abdominal pain which is resolved now. His pain was in the right upper quadrant for a few days, it was severe yesterday but not bad today and irrigated about 2/10. No vomiting, no nausea and he eats well. His been complaining of from left ear ringing on and off for the last few months. He intends to follow up with his PCP regarding this Also complains from mild headache, no significant dizziness currently. No slurred speech or blurred vision. Patient vitals are stable and afebrile Has unremarkable CBC, BMP, liver enzymes, Troponin times are negative. D-dimer is -0.50. CT of the brain: No acute process, bilateral thyroid nodules Including 1.7 cm on the left and 1.4 cm underwrites besides other smaller nodules CT of the brain: No acute intracranial process Chest x-ray: No acute process. EKG: Normal sinus rhythm at [address]-T changes, no evidence of arrhythmia or LVH or ST elevation. QTC 393 Review of Systems Review of systems CONSTITUTIONAL: No fever, no malaise, no fatigue. HEENT: No recent visual problems or hearing problems. Denied any sore throat. CARDIOVASCULAR: No orthopnea, PND, no palpitations, no syncope. PULMONARY: No shortness of breath, no cough, no hemoptysis. GASTROINTESTINAL: No diarrhea, no nausea, no vomiting, no abdominal pain. Normoactive bowel sounds. NEUROLOGICAL: No headaches, no weakness, no numbness. HEMATOLOGICAL: Denies any bleeding or petechiae. GENITOURINARY: Denies any burning micturition, frequency, or urgency. MUSCULOSKELETAL/RHEUMATOLOGICAL: Denies any joint pain, swelling, or any muscle pain. ENDOCRINE: Denies any polyuria or polydipsia. Past Medical History Past Medical History: Coronary Artery Disease (CAD), Hyperlipidemia Additional Past Medical History / Comment(s): DVT, seizures/last one 2008, diverticular disease, colon polyps-benign, celiac's disease, BPH, bronchitis, pt states L leg feels "heavy past couple years." History of Any Multi-Drug Resistant Organisms: None Reported Past Surgical History: Coronary Bypass/CABG Additional Past Surgical History / Comment(s): 1994 CABG 2 vessel, L side of neck "filter"/pt and family states d/t blood clot, EGD, colonoscopies, hemorrhoidectomy, L inguinal hernia repair, bilateral shoulder surgeries (pt states shoulders use to dislocate when he had a seizure, L eye cat removed. Past Anesthesia/Blood Transfusion Reactions: No Reported Reaction Past Psychological History: No Psychological Hx Reported Smoking Status: Former smoker Past Alcohol Use History: None Reported Past Drug Use History: None Reported - Past Family History Father Family Medical History: Coronary Artery Disease (CAD) Additional Family Medical History / Comment(s): CABG Mother Family Medical History: No Reported History Medications and Allergies Home Medications Medication Instructions Recorded Confirmed Type RX: ALPRAZolam [Xanax] 0.5 mg PO TID PRN 02/12/22 01/21/23 History RX: Ascorbic Acid [Vitamin C] 1,000 mg PO DAILY 02/12/22 01/21/23 History RX: Aspirin 81 mg PO DAILY 02/12/22 01/21/23 Rx RX: Atorvastatin [Lipitor] 20 mg PO HS #30 tab 02/12/22 01/21/23 Rx RX: Diclofenac Sodium Gel 4 gm TOPICAL QID #100 gm 02/12/22 01/21/23 Rx [Voltaren Gel] RX: Famotidine [Pepcid] 20 mg PO DAILY 02/12/22 01/21/23 History RX: [place]-3 Fatty Acids [Poway-3] 1,000 mg PO DAILY 02/12/22 01/21/23 History RX: Phenytoin Sodium Extended 200 mg PO BID 02/12/22 01/21/23 History [Dilantin] RX: Tamsulosin HCl [Flomax] 0.4 mg PO DAILY 02/12/22 01/21/23 History RX: Turmeric Root Extract 500 mg PO DAILY 02/12/22 01/21/23 History [Turmeric] RX: Vitamin A [Vitamin A (8,000 2,400 mcg PO DAILY 02/12/22 01/21/23 History Units = 2,400 MCG)] RX: Vitamin E (Dl,Tocopheryl Acet) 400 unit PO DAILY 02/12/22 01/21/23 History [Vitamin E (400 Iu = 180 mg)] RX: Warfarin [Coumadin] 5 mg PO HS 02/12/22 01/21/23 History RX: amLODIPine [Norvasc] 2.5 mg PO DAILY 02/12/22 01/21/23 History RX: lisinopriL [Zestril] 10 mg PO DAILY #30 tab 02/12/22 01/21/23 Rx Allergies Allergy/AdvReac Type Severity Reaction Status Date / Time No Known Allergies Allergy Verified 07/15/23 23:21 Physical Exam Vitals: Vital Signs Temp Pulse Resp BP Pulse Ox 07/16/23 02:35 60 16 138/79 97 07/16/23 00:20 61 16 149/75 98 07/15/23 23:18 97.6 F 61 18 170/82 98 Intake and Output 07/15/23 07/16/23 07/16/23 22:59 06:59 14:59 Other: Weight 61.235 kg GENERAL: The patient is alert and oriented x3, not in any acute distress. Well developed, well nourished. HEENT: Pupils are round and equally reacting to light. EOMI. No scleral icterus. No conjunctival pallor. Normocephalic, atraumatic. No pharyngeal erythema. No thyromegaly. CARDIOVASCULAR: S1 and S2 present. No murmurs, rubs, or gallops. PULMONARY: Chest is clear to auscultation, no wheezing , no crackles. ABDOMEN: Soft, nontender, nondistended, normoactive bowel sounds. No palpable organomegaly. MUSCULOSKELETAL: No joint swelling or deformity. EXTREMITIES: No cyanosis, clubbing, or pedal edema. NEUROLOGICAL: Gross neurological examination did not reveal any focal deficits. SKIN: No rashes. no petechiae. Results CBC & Chem 7: 07/15/23 23:34 07/15/23 23:34 Labs: Abnormal Lab Results - Last 24 Hours (Table) 07/15/23 07/15/23 Range/Units 23:34 23:34 RBC 4.20 L (4.30-5.90) m/uL Chloride 114 H (98-107) mmol/L Carbon Dioxide 18 L (22-30) mmol/L Glucose 104 H (74-99) mg/dL Calcium 7.9 L (8.4-10.2) mg/dL Assessment and Plan Assessment: Acute syncope, rule out cardiac causes versus neurological causes Suspicious for slurred speech on admission, suspicious for TIA Significant diarrhea 1 day prior to hospitalization most likely acute gastroenteritis which could be viral. Improved now Subacute left ear ringing getting sound. Bilateral thyroid nodules including 1.7 cm on the left and 1.4 cm underwrites besides other smaller nodules coronary artery disease status post CABG History of the venous thrombosis on Coumadin Hypertension Hyperlipidemia Benign prostatic hypertrophy Plan: Check orthostatic vitals. Continue gentle hydration sent for urine analysis in bladder scan, also sent for urine drug screen continue with aspirin home dose of 81 mg after verified with pharmacy Cardiology and neurology consult Labs and medication were reviewed.. Continue same treatment. Continue with symptomatic treatment. Resume home medication. Monitor labs and vitals. DVT and GI prophylaxis. Further recommendations as per clinical course of the patient DVT prophylaxis: Subcutaneous heparin GI Prophylaxis: Pepcid PT/OT: Pending Prognosis is guarded discussed recommendation with the staff
--- NOTE | 2023-07-16 10:35 | P.CRDCN ---
History of Present Illness History of present illness: HISTORY OF PRESENT ILLNESS: This is a 78-year-old male with a past medical history significant for coronary artery disease with previous CABG, hypertension, hyperlipidemia, TIA/CVA, and pulmonary embolism. Patient follows in the office with Dr. Schuler but has not b clarice seen since January 2022. We have been asked to see the patient in consultation for syncope. Patient examined at the bedside. Patient states yesterday evening he was sleeping when his granddaughter stopped over at his house. He states that he got out of bed quickly and walked to the front door to open up for her. He states after opening the door he fell to the floor. He states he did not feel dizzy or lightheaded prior to this. He denied having any chest pain or shortness of breath. He is unsure if he lost consciousness. He remembers waking up and feeling confused. He reports that his granddaughter was trying to talk to him and his speech was slurred. He denied any loss of bowel or bladder. He denied any weakness in any of his extremities. This morning he states that he feels like his head is in the clouds and has been having constant ringing in his years. This morning he denies any chest pain or pressure. He denies shortness of breath. He is a nonsmoker. He denies any alcohol use. * EKG reveals sinus mechanism with no signs of acute ischemia * Chest xray no acute findings * Laboratory data: WBC 8.2. Hemoglobin 13.1. Platelet count 197. D-dimer 0.50. Sodium 141. Potassium 3.9. BUN 17. Creatinine 0.91. Magnesium 2.0. Troponin negative 3 * Current home cardiac medications include Lipitor 20 mg at night, amlodipine 2.5 mg daily, Coumadin 5 mg daily * Most recent echocardiogram obtained in October 2013 revealing normal ejection fraction, mild MR, mild TR * Patient underwent two-vessel CABG in April 1999 with BLACK to LAD and VGRCA REVIEW OF SYSTEMS: At the time of my exam: CONSTITUTIONAL: Denies fever or chills. HEENT: Denies blurred vision, vision changes, or eye pain. Denies hemoptysis CARDIOVASCULAR: Denies chest pain. Denies orthopnea. Denies PND. Denies palpitations RESPIRATORY: Denies shortness of breath. GASTROINTESTINAL: Denies abdominal pain. Denies nausea or vomiting. HEMATOLOGIC: Denies bleeding disorders. GENITOURINARY: Denies any blood in urine. SKIN: Denies pruitis. Denies rash. PHYSICAL EXAM: VITAL SIGNS: Reviewed. GENERAL: Well-developed in no acute distress. HEENT: Head is normocephalic. Pupils are equal, round. Sclerae anicteric. Mucous membranes of the mouth are moist. Neck supple. No JVD or thyromegaly LUNGS: Respirations even and unlabored. Lungs essentially clear to auscultation bilaterally. HEART: Regular rate and rhythm. S1 and S2 heard. ABDOMEN: Soft. Nondistended. Nontender. EXTREMITIES: Normal range of motion. No clubbing or cyanosis. Peripheral pu lses intact. No lower extremity edema NEUROLOGIC: Awake and alert. Oriented x 3. ASSESSMENT: Syncope Coronary artery disease with previous CABG Hypertension Hyperlipidemia History of TIA/CVA History of pulmonary embolism Subtherapeutic INR PLAN: Obtain 2-D echo to assess cardiac structure and function Check orthostatic blood pressures Continue telemetry monitoring to assess for any arrhythmias Neurology has been consulted. EEG ordered. If workup is negative, will discharge patient home with event monitor Further recommendations pending patient's course Nurse practitioner note has been reviewed by physician. Signing provider agrees with the documented findings, assessment, and plan of care. Past Medical History Past Medical History: Coronary Artery Disease (CAD), Hyperlipidemia Additional Past Medical History / Comment(s): DVT, seizures/last one 2008, diverticular disease, colon polyps-benign, celiac's disease, BPH, bronchitis, pt states L leg feels "heavy past couple years." History of Any Multi-Drug Resistant Organisms: None Reported Past Surgical History: Coronary Bypass/CABG Additional Past Surgical History / Comment(s): 1994 CABG 2 vessel, L side of neck "filter"/pt and family states d/t blood clot, EGD, colonoscopies, hemorrhoidectomy, L inguinal hernia repair, bilateral shoulder surgeries (pt states shoulders use to dislocate when he had a seizure, L eye cat removed. Past Anesthesia/Blood Transfusion Reactions: No Reported Reaction Past Psychological History: No Psychological Hx Reported Smoking Status: Former smoker Past Alcohol Use History: None Reported Past Drug Use History: None Reported - Past Family History Father Family Medical History: Coronary Artery Disease (CAD) Additional Family Medical History / Comment(s): CABG Mother Family Medical History: No Reported History Medications and Allergies Home Medications Medication Instructions Recorded Confirmed Type ALPRAZolam [Xanax] 0.25 - 5 mg PO TID PRN 02/12/22 07/16/23 History Atorvastatin [Lipitor] 20 mg PO HS #30 tab 02/12/22 07/16/23 Rx Famotidine [Pepcid] 20 mg PO BID 02/12/22 07/16/23 History Phenytoin Sodium Extended 200 mg PO BID 02/12/22 07/16/23 History [Dilantin] Tamsulosin HCl [Flomax] 0.8 mg PO DAILY 02/12/22 07/16/23 History amLODIPine [Norvasc] 2.5 mg PO DAILY 02/12/22 07/16/23 History Warfarin [Coumadin] 5 mg PO DAILY 07/16/23 07/16/23 History Allergies Allergy/AdvReac Type Severity Reaction Status Date / Time No Known Allergies Allergy Verified 07/16/23 08:45 Physical Exam Vitals: Vital Signs Temp Pulse Resp BP Pulse Ox 07/16/23 06:00 53 L 16 137/77 07/16/23 04:00 60 114/69 98 07/16/23 02:35 60 16 138/79 97 07/16/23 00:20 61 16 149/75 98 07/15/23 23:18 97.6 F 61 18 170/82 98 Intake and Output 07/15/23 07/16/23 07/16/23 22:59 06:59 14:59 Other: Weight 61.235 kg Results 07/15/23 23:34 07/15/23 23:34 Cardiac Enzymes 07/15/23 07/15/23 07/16/23 Range/Units 23:34 23:34 03:14 AST 27 (17-59) U/L Troponin I <0.012 <0.012 (0.000-0.034) ng/mL 07/16/23 Range/Units 06:41 AST (17-59) U/L Troponin I <0.012 (0.000-0.034) ng/mL Coagulation 07/15/23 Range/Units 23:34 PT 11.7 (9.0-12.0) sec APTT 25.1 (22.0-30.0) sec CBC 07/15/23 Range/Units 23:34 WBC 8.2 (3.8-10.6) k/uL RBC 4.20 L (4.30-5.90) m/uL Hgb 13.1 (13.0-17.5) gm/dL Hct 40.7 (39.0-53.0) % Plt Count 197 (150-450) k/uL Comprehensive Metabolic Panel 07/15/23 Range/Units 23:34 Sodium 141 (137-145) mmol/L Potassium 3.9 (3.5-5.1) mmol/L Chloride 114 H (98-107) mmol/L Carbon Dioxide 18 L (22-30) mmol/L BUN 17 (9-20) mg/dL Creatinine 0.91 (0.66-1.25) mg/dL Glucose 104 H (74-99) mg/dL Calcium 7.9 L (8.4-10.2) mg/dL AST 27 (17-59) U/L ALT 17 (4-49) U/L Alkaline Phosphatase 100 (38-126) U/L Total Protein 6.5 (6.3-8.2) g/dL Albumin 3.8 (3.5-5.0) g/dL Current Medications Generic Name Dose Route Start Last Admin Trade Name Freq PRN Reason Stop Dose Admin Famotidine 20 mg 07/16/23 09:00 Famotidine 20 Mg/2 Ml Vial IV Q12HR [facility] Heparin Sodium (Porcine) 5,000 unit 07/16/23 09:00 Heparin Sodium,Porcine 5,000 Unit/Ml 1 Ml Vial SQ Q12HR [facility] Dextrose/Sodium Chloride 1,000 mls @ 75 mls/hr 07/16/23 08:30 Dextrose 5%-Ns Iv Soln IV .[id number] [facility] Morphine Sulfate 4 mg 07/16/23 00:30 Morphine Sulfate 4 Mg/Ml Syringe IV Q4HR PRN Severe Pain (Scale 7 to 10) Naloxone HCl 0.2 mg 07/16/23 00:30 Naloxone 0.4 Mg/Ml 1 Ml Vial IV Q2M PRN Opioid Reversal Ondansetron HCl 4 mg 07/16/23 00:30 Ondansetron 4 Mg/2 Ml Vial IVP Q8HR PRN Nausea And Vomiting Intake and Output 07/15/23 07/16/23 07/16/23 22:59 06:59 14:59 Other: Weight 61.235 kg 07/15/23 23:34 07/15/23 23:34
[2023-07-16] MEDS ORDERED: WARFARIN 5 MG TAB PO SCH (10:45)
[2023-07-16] MEDS: FAMOTIDINE 20 MG/2 ML VIAL IV SCH ×2 (11:21→22:23)
[2023-07-16] MEDS: HEPARIN SODIUM,PORCINE 5,000 UNIT/ML 1 ML VIAL SQ SCH ×2 (11:24→22:23)
[2023-07-16] MEDS: amLODIPine 2.5 MG TAB PO SCH (11:28)
[2023-07-16] MEDS: DEXTROSE 5%-0.9% NACL 1,000 ML IV SCH ×2 (11:44→22:23)
--- NOTE | 2023-07-16 15:30 | P.CNNES ---
History of Present Illness Consult date: 07/16/23 Requesting physician: Beni Alas Reason for Consult: tia History of Present Illness: This is a 78-year-old gentleman with history of seizure on dilantin, DVT on Coumadin, coronary artery disease status post CABG who presented to the emergency department because of syncopal episode. Some the history was obtained from medical record. Seems that the patient was sleeping the yesterday night when he woke up he was drowsy and when he opened the door for his granddaughter he passed out at the doorsteps and was on the floor for few minutes and woke up with no confusion. No seizure-like activity or urinary or bowel and consult with tongue biting reported. He is been having severe diarrhea since yesterday in the afternoon with some abdominal pain. Seems the patient has been having left finger numbness for last 3 weeks as well as left leg weakness but could not see how long. Patient states he is on Dilantin 200 mg extended release twice a day for seizure and his last seizure was 2008. He says with his seizures he shakes all extremities and with this episode that he was told he did not have any shaking episode. He denies missing his medication. He follows up with Dr. Lin for his seizures. Rarely he denies any focal weakness, numbness, visual disturbance or any headache. He resides with his . Socially drinks alcohol. Some of the workup during this hospital visit consisted of: Initial serum glucose is 104. Calcium 7.9. Sodium, BUN/creatinine AST and ALT is within normal limits. CT of the head is reported as no acute intracranial hemorrhage, midline shift or mass effect. Personally reviewed the CT and there is no acute or subacute ischemia. There is no bleed that was able to appreciate. There is no mass effect. Patient has chronic white matter changes over bilateral hemisphere. CT angiography of the head and neck was reported as moderate right vertebral origin stenosis from atherosclerosis. Mild right proximal ICA stenosis from physical stenosis. 1.7 cm left and 1.4 cm right thyroid gland nodule. Other small nodules are also seen bilaterally. Review of Systems Review of system: The 12 point system was reviewed and apparent positive and negative per HPI. Past Medical History Past Medical History: Coronary Artery Disease (CAD), Hyperlipidemia Additional Past Medical History / Comment(s): DVT, seizures/last one 2008, diverticular disease, colon polyps-benign, celiac's disease, BPH, bronchitis, pt states L leg feels "heavy past couple years." History of Any Multi-Drug Resistant Organisms: None Reported Past Surgical History: Coronary Bypass/CABG Additional Past Surgical History / Comment(s): 1994 CABG 2 vessel, L side of neck "filter"/pt and family states d/t blood clot, EGD, colonoscopies, hemorrhoidectomy, L inguinal hernia repair, bilateral shoulder surgeries (pt states shoulders use to dislocate when he had a seizure, L eye cat removed. Past Anesthesia/Blood Transfusion Reactions: No Reported Reaction Past Psychological History: No Psychological Hx Reported Smoking Status: Former smoker Past Alcohol Use History: None Reported Past Drug Use History: None Reported - Past Family History Father Family Medical History: Coronary Artery Disease (CAD) Additional Family Medical History / Comment(s): CABG Mother Family Medical History: No Reported History Medications and Allergies Home Medications Medication Instructions Recorded Confirmed Type ALPRAZolam [Xanax] 0.25 - 5 mg PO TID PRN 02/12/22 07/16/23 History Atorvastatin [Lipitor] 20 mg PO HS #30 tab 02/12/22 07/16/23 Rx Famotidine [Pepcid] 20 mg PO BID 02/12/22 07/16/23 History Phenytoin Sodium Extended 200 mg PO BID 02/12/22 07/16/23 History [Dilantin] Tamsulosin HCl [Flomax] 0.8 mg PO DAILY 02/12/22 07/16/23 History amLODIPine [Norvasc] 2.5 mg PO DAILY 02/12/22 07/16/23 History Warfarin [Coumadin] 5 mg PO DAILY 07/16/23 07/16/23 History Allergies Allergy/AdvReac Type Severity Reaction Status Date / Time No Known Allergies Allergy Verified 07/16/23 08:45 Physical Examination - Vital Signs Vital Signs: Vital Signs Temp Pulse Resp BP BP Pulse Ox 07/16/23 11:23 98.6 F 58 L 18 106/86 97 07/16/23 08:36 68 18 148/82 97 07/16/23 08:18 144/85 07/16/23 08:16 129/88 07/16/23 08:14 148/82 07/16/23 06:00 53 L 16 137/77 07/16/23 04:00 60 114/69 98 07/16/23 02:35 60 16 138/79 97 07/16/23 00:20 61 16 149/75 98 07/15/23 23:18 97.6 F 61 18 170/82 98 Intake and Output 07/15/23 07/16/23 07/16/23 22:59 06:59 14:59 Other: Weight 61.235 kg GENERAL: The patient is lying in bed and is not in acute distress. NEUROLOGICAL: Higher mental function: The patient is awake, alert, oriented to self, place and time. Patient is following commands. No aphasia and no neglect. Cranial nerves: The pupils are round, equal and reactive to light and accommodation. Visual horner are full to confrontation throughout. Extraocular movement is intact no nystagmus is noted. Facial sensation is normal to touch throughout. The facial strength is normal throughout. Hearing is normal bilaterally to hand rub. Tongue is midline and moved [id number] without any difficulty. No dysarthria is noted. Shoulder shrug is normal bilaterally. Motor: The strength is 5 over 5 throughout. Normal tone and bulk. Cerebellum: Normal finger to nose bilaterally. Sensation: Sensation is normal to touch throughout. Reflexes (right/left): 2+ throughout. Plantars are downgoing bilaterally. Results - Laboratory Findings CBC and BMP: 07/15/23 23:34 07/15/23 23:34 Abnormal Lab Findings: Abnormal Labs 07/15/23 07/15/23 23:34 23:34 RBC 4.20 L Chloride 114 H Carbon Dioxide 18 L Glucose 104 H Calcium 7.9 L Assessment and Plan Assessment: This is a 78-year-old gentleman who presented emergency department because of syncopal episode. It seems that he had a syncopal episode while attempting to open the door for his granddaughter and passed out on the doorsteps and the with no post ictal confusion and no seizure-like activity urinary or bowel and consult with tongue bite. Seems the patient has been having diarrhea recently. Syncopal episode of unknown cause History of seizures and last seizure was in 2008 History of DVT on Coumadin History of coronary artery disease status post CABG Plan: I ordered a routine EEG to rule out any underlying seizure or discharges. Dilantin level is ordered since the patient is on Dilantin 100 mg extended release twice a day. Ordered MRI of the brain with and without seizure protocol Cardiology is consulted and 2-D echo was ordered and spending Orthostatic vitals his order is pending We'll defer the rest of the medical management to primary team Upon discharge, patient to continue to follow-up with his neurologist as outpatient. Thank you consultation Time with Patient: Greater than 30
--- NOTE | 2023-07-16 19:17 | EEG ---
ELECTROENCEPHALOGRAM REPORT CLINICAL HISTORY: This is a 78-year-old gentleman with a history of seizure, who had a syncopal episode at home. The video EEG is obtained to evaluate for seizure and epileptiform activity. RELEVANT MEDICATIONS: Dilantin. EEG TYPE: A routine 21-channel EEG with video using the 10/20 electrode placement system is used. DESCRIPTION: Wakefulness and drowsiness are obtained. The posterior-dominant rhythm consists of [id number] voltage of 8.5 Hz activity, that is well modulated and well sustained. There is no physiological stage II sleep architecture. There is no focal slowing. INTERICTAL AND ICTAL: None. ACTIVATION PROCEDURE: Photic stimulation did not evoke a posterior driving response. There is no abnormality during the photic stimulation. Hyperventilation is not performed. CLINICAL INTERPRETATION: This is a normal routine EEG. There is no focal slowing, epileptiform discharge, or seizure on the EEG. A normal routine EEG does not rule out any underlying epilepsy. Clinical correlation is recommended. NATALYA / SHIVAMN: [id number] / MTDD
[2023-07-16] MEDS ORDERED: ATORVASTATIN 20 MG TAB PO SCH (21:00)
[2023-07-16] MEDS: PHENYTOIN SODIUM EXTENDED 100 MG CAP PO SCH (22:23)
[2023-07-17 07:56] LABS: African American GFR (CKD) >90 (>60 ml/min/1.73 sqM); Anion Gap 11 mmol/L; Blood Urea Nitrogen 18 mg/dL (9-20); Carbon Dioxide 17 mmol/L (22-30); Chloride 111 mmol/L (98-107); Glucose 90 mg/dL (74-99); Non-African American GFR(CKD) 86 (>60 ml/min/1.73 sqM); Potassium 4.6 mmol/L (3.5-5.1); Sodium 139 mmol/L (137-145)
[2023-07-17 08:14] LABS: INR 1.1 (<1.2); Prothrombin Time 11.5 sec (9.0-12.0)
[2023-07-17 08:17] VITALS: PULSE 80; RESP 18; TEMP 98.2
[2023-07-17] MEDS: HEPARIN SODIUM,PORCINE 5,000 UNIT/ML 1 ML VIAL SQ SCH (08:44)
[2023-07-17] MEDS: FAMOTIDINE 20 MG/2 ML VIAL IV SCH (08:44)
[2023-07-17] MEDS: PHENYTOIN SODIUM EXTENDED 100 MG CAP PO SCH (08:44)
[2023-07-17] MEDS: amLODIPine 2.5 MG TAB PO SCH (08:44)
[2023-07-17] MEDS ORDERED: TAMSULOSIN 0.4 MG CAP.ER.24H PO SCH (09:00)
[2023-07-17] MEDS: DEXTROSE 5%-0.9% NACL 1,000 ML IV SCH (09:50)
--- NOTE | 2023-07-17 09:54 | P.PN ---
Subjective HISTORY OF PRESENT ILLNESS: This is a 78-year-old male with a past medical history significant for coronary artery disease with previous CABG, hypertension, hyperlipidemia, TIA/CVA, and pulmonary embolism. Patient follows in the office with Dr. Schuler but has not been seen since January 2022. We have been asked to see the patient in consultation for syncope. Patient examined at the bedside. Patient states yesterday evening he was sleeping when his granddaughter stopped over at his house. He states that he got out of bed quickly and walked to the front door to open up for her. He states after opening the door he fell to the floor. He states he did not feel dizzy or lightheaded prior to this. He denied having any chest pain or shortness of breath. He is unsure if he lost consciousness. He remembers waking up and feeling confused. He reports that his granddaughter was trying to talk to him and his speech was slurred. He denied any loss of bowel or bladder. He denied any weakness in any of his extremities. This morning he states that he feels like his head is in the clouds and has been having constant ringing in his years. This morning he denies any chest pain or pressure. He denies shortness of breath. He is a nonsmoker. He denies any alcohol use. * EKG reveals sinus mechanism with no signs of acute ischemia * Chest xray no acute findings * Laboratory data: WBC 8.2. Hemoglobin 13.1. Platelet count 197. D-dimer 0.50. Sodium 141. Potassium 3.9. BUN 17. Creatinine 0.91. Magnesium 2.0. Troponin negative 3 * Current home cardiac medications include Lipitor 20 mg at night, amlodipine 2 .5 mg daily, Coumadin 5 mg daily * Most recent echocardiogram obtained in October 2013 revealing normal ejection fraction, mild MR, mild TR * Patient underwent two-vessel CABG in April 1999 with BLACK to LAD and VGRCA 07/17/2023 Patient examined this morning at the bedside. Patient denies chest pain or pressure. He denies shortness of breath. Vital signs are stable. EEG perfo rmed with no evidence of seizure activity. PHYSICAL EXAM: VITAL SIGNS: Reviewed. GENERAL: Well-developed in no acute distress. HEENT: Head is normocephalic. Pupils are equal, round. Sclerae anicteric. Mucous membranes of the mouth are moist. Neck supple. No JVD or thyromegaly LUNGS: Respirations even and unlabored. Lungs essentially clear to auscultation bilaterally. HEART: Regular rate and rhythm. S1 and S2 heard. ABDOMEN: Soft. Nondistended. Nontender. EXTREMITIES: Normal range of motion. No clubbing or cyanosis. Peripheral pulses intact. No lower extremity edema NEUROLOGIC: Awake and alert. Oriented x 3. ASSESSMENT: Syncope; suspect secondary to vasovagal/orthostatic hypotension Coronary artery disease with previous CABG Hypertension Hyperlipidemia History of TIA/CVA History of pulmonary embolism Subtherapeutic INR PLAN: 2-D echo ordered. Await results Check orthostatic blood pressures Continue telemetry monitoring to assess for any arrhythmias Patient may be discharged home this afternoon from a cardiac standpoint Will consider outpatient event monitor Nurse practitioner note has been reviewed by physician. Signing provider agrees with the documented findings, assessment, and plan of care. Objective - Vital Signs Vital signs: Vital Signs Temp 98.2 F 07/17/23 07:00 Pulse 80 07/17/23 08:00 Resp 18 07/17/23 07:00 BP 128/73 07/17/23 07:00 Pulse Ox 98 07/17/23 07:00 FiO2 Intake & Output 07/16/23 07/17/23 07/17/23 18:59 06:59 18:59 Intake Total 475 Balance 475 Weight 61.235 kg Intake: IV 225 Dextrose 5%-0.9% NaCl 1, 225 000 ml @ 75 mls/hr IV . [id number] [facility] Rx#:[id number] Oral 250 Other: Voiding Method Urinal Urinal # Voids 1 # Bowel Movements 1 - Labs CBC & Chem 7: 07/15/23 23:34 07/17/23 06:42 Labs: Abnormal Lab Results - Last 24 Hours (Table) 07/16/23 07/17/23 Range/Units 02:33 06:42 Chloride 111 H (98-107) mmol/L Carbon Dioxide 17 L (22-30) mmol/L Free Phenytoin <0.8 L (0.8-2.0) ug/mL
[2023-07-17 13:25] VITALS: BP 118/71
[2023-07-17] MEDS ORDERED: APIXABAN 5 MG TAB PO SCH (13:30)
--- NOTE | 2023-07-17 13:40 | P.PN ---
Subjective Progress Note Date: 07/17/23 I am following-up seeing the patient and he feels he doing well and no further syncopal episodes. Denies of any new neurological issues. He is accompanied with one of family members and family member stated, the patient was sleeping that day and when one of family members came to his house and he went to open door, they think possibly he was half asleep and possibly he opened door was alarmed and fell backward. Objective - Vital Signs Vital signs: Vital Signs Temp 98.2 F 07/17/23 07:00 Pulse 80 07/17/23 08:00 Resp 18 07/17/23 07:00 BP 128/73 07/17/23 07:00 Pulse Ox 98 07/17/23 07:00 FiO2 Intake & Output 07/16/23 07/17/23 07/17/23 18:59 06:59 18:59 Intake Total 475 Balance 475 Weight 61.235 kg Intake: IV 225 Dextrose 5%-0.9% NaCl 1, 225 000 ml @ 75 mls/hr IV . [id number] [facility] Rx#:[id number] Oral 250 Other: Voiding Method Urinal Urinal # Voids 1 # Bowel Movements 1 - Exam GENERAL: The patient is lying in bed and is not in acute distress. NEUROLOGICAL: Higher mental function: The patient is awake, alert, oriented to self, place and time. Patient is following commands. No aphasia and no neglect. Cranial nerves: The pupils are round, equal and reactive to light and accommo dation. Visual horner are full to confrontation throughout. Extraocular movement is intact no nystagmus is noted. Facial sensation is normal to touch throughout. The facial strength is normal throughout. Hearing is normal bilaterally to hand rub. Tongue is midline and moved [id number] without any difficulty. No dysarthria is noted. Shoulder shrug is normal bilaterally. Motor: The strength is 5 over 5 throughout. Normal tone and bulk. Cerebellum: Normal finger to nose bilaterally. Sensation: Sensation is normal to touch throughout. Reflexes (right/left): 2+ throughout. Plantars are downgoing bilaterally. Some of the workup during this hospital visit consisted of: Initial serum glucose is 104. Calcium 7.9. Sodium, BUN/creatinine AST and ALT is within normal limits. Dilantin free level <0.8 while total is <3.0 CT of the head is reported as no acute intracranial hemorrhage, midline shift or mass effect. Personally reviewed the CT and there is no acute or subacute ischemia. There is no bleed that was able to appreciate. There is no mass effect. Patient has chronic white matter changes over bilateral hemisphere. CT angiography of the head and neck was reported as moderate right vertebral origin stenosis from atherosclerosis. Mild right proximal ICA stenosis from physical stenosis. 1.7 cm left and 1.4 cm right thyroid gland nodule. Other small nodules are also seen bilaterally. Routine EEG: Is normal. There is no focal slowing, epileptiform discharges or seizure on the EEG. - Labs CBC & Chem 7: 07/15/23 23:34 07/17/23 06:42 Labs: Abnormal Lab Results - Last 24 Hours (Table) 07/16/23 07/17/23 Range/Units 02:33 06:42 Chloride 111 H (98-107) mmol/L Carbon Dioxide 17 L (22-30) mmol/L Free Phenytoin <0.8 L (0.8-2.0) ug/mL Assessment and Plan Assessment: This is a 78-year-old gentleman who presented emergency department because of syncopal episode. It seems that he had a syncopal episode while attempting to open the door for his granddaughter and passed out on the doorsteps and the with no post ictal confusion and no seizure-like activity urinary or bowel and consult with tongue bite. Seems the patient has been having diarrhea recently. Syncopal episode of unknown cause--routine EEG is normal. History of seizures and last seizure was in 2008 History of DVT on Coumadin History of coronary artery disease status post CABG Plan: He is continued on his home dose of Dilantin 200 mg extended release twice a day. I will not modify his antiepileptic drug even though Dilantin is subtherapeutic since no clear seizure. He is on large dose of 200mg bid. Recommend repeating Dilantin level within 3 weeks and will defer modification of medication to his neurologist as outpatient. Cannot obtain MRI Brain since has carotid stents and unsure if compatible. Recommend MRI Brain w/ ad w/o as outpatient. Cardiology is consulted and 2-D echo was ordered and spending His orthostatic is supine is 118/71, sitting is 131/81 and standing 128/73. Orthostatic is negative. We'll defer the rest of the medical management to primary team Upon discharge, patient to continue to follow-up with his neurologist as outpatient. The plan is discussed with patient, family member who is at bedside and his nurse. There is no further neurological work-up. Please notify neurology team if any further concerns. Time with Patient: Less than 30
[2023-07-17 14:00] VITALS: BMI 18.8
--- NOTE | 2023-07-17 15:27 | P.CONS ---
History of Present Illness - Reason for Consult Consult date: 07/17/23 hx dvt, anticoag management Requesting physician: Roberto E Sheet - Chief Complaint syncope, TIA - History of Present Illness Patient is a 78-year-old male with a significant history of TIA, DVT. We were consulted for history of DVT and anticoagulation management. HPI is limited due to patient being a poor historian. Patient initially presented to the emergency room for syncope and slurred speech. Patient reports he got up to answer the door and upon opening the door he had a syncopal episode. At which time his daughter also noticed slurred speech. At today's visit patient reports feeling well and neuro symptoms have since resolved. Patient states he was placed on Coumadin greater than 5 years ago but is unsure what year. He reports he was started on Coumadin for left lower extremity DVT. He states there was no provoking factors. He states that he follows up with his control panel operator approximately once a month for INR checks but frequently misses appointments. When patient was asked why he follows up with cardiology he states for mitral valve regurgitation. Denies history of atrial fibrillation, valve replacement, and [place]/stents. CTA head and neck revealed mild left mid HORSE TRAINER stenosis. Moderate right vertebral artery origin stenosis from atherosclerosis. Mild right proximal ICA stenosis from atherosclerosis. CT head revealed no acute intracra nial hemorrhage, midline shift, or mass effect. EEG normal. Neurology following Review of Systems 10 point ROS is negative except as stated in the HPI Past Medical History Past Medical History: Coronary Artery Disease (CAD), Hyperlipidemia Additional Past Medical History / Comment(s): DVT, seizures/last one 2008, diverticular disease, colon polyps-benign, celiac's disease, BPH, bronchitis, pt states L leg feels "heavy past couple years." History of Any Multi-Drug Resistant Organisms: None Reported Past Surgical History: Coronary Bypass/CABG Additional Past Surgical History / Comment(s): 1994 CABG 2 vessel, L side of neck "filter"/pt and family states d/t blood clot, EGD, colonoscopies, hemorrhoidectomy, L inguinal hernia repair, bilateral shoulder surgeries (pt states shoulders use to dislocate when he had a seizure, L eye cat removed. Past Anesthesia/Blood Transfusion Reactions: No Reported Reaction Past Psychological History: No Psychological Hx Reported Smoking Status: Former smoker Past Alcohol Use History: None Reported Past Drug Use History: None Reported - Past Family History Father Family Medical History: Coronary Artery Disease (CAD) Additional Family Medical History / Comment(s): CABG Mother Family Medical History: No Reported History Medications and Allergies Home Medications Medication Instructions Recorded Confirmed Type Atorvastatin [Lipitor] 20 mg PO HS #30 tab 02/12/22 07/16/23 Rx Famotidine [Pepcid] 20 mg PO BID 02/12/22 07/16/23 History Phenytoin Sodium Extended 200 mg PO BID 02/12/22 07/16/23 History [Dilantin] Tamsulosin HCl [Flomax] 0.8 mg PO DAILY 02/12/22 07/16/23 History amLODIPine [Norvasc] 2.5 mg PO DAILY 02/12/22 07/16/23 History Apixaban [Eliquis] 5 mg PO BID #60 tab 07/17/23 Rx Allergies Allergy/AdvReac Type Severity Reaction Status Date / Time gluten Allergy Nausea & Verified 07/17/23 10:51 Vomiting & Diarrhea Physical Exam Vitals: Vital Signs Temp Pulse Pulse Resp BP BP BP 07/17/23 13:24 131/81 07/17/23 08:00 80 07/17/23 07:00 98.2 F 80 18 128/73 07/17/23 02:00 50 L 14 07/17/23 01:11 98.4 F 50 L 117/73 07/16/23 20:00 97.6 F 52 L 14 104/59 07/16/23 15:07 65 16 129/98 07/16/23 15:00 57 L 11 L 124/61 BP BP Pulse Ox 07/17/23 13:24 128/73 118/71 07/17/23 08:00 07/17/23 07:00 98 07/17/23 02:00 07/17/23 01:11 96 07/16/23 20:00 95 07/16/23 15:07 96 07/16/23 15:00 96 Intake and Output 07/16/23 07/17/23 07/17/23 22:59 06:59 14:59 Intake Total 475 Balance 475 Intake: IV 225 Dextrose 5%-0.9% NaCl 1, 225 000 ml @ 75 mls/hr IV . [id number] [facility] Rx#:[id number] Oral 250 Other: Voiding Method Urinal Urinal # Voids 1 # Bowel Movements 1 Weight 61.235 kg - Constitutional General appearance: average body habitus, no acute distress - EENT Eyes: anicteric sclerae, EOMI ENT: hearing grossly normal - Respiratory Respiratory: bilateral: CTA - Cardiovascular Rhythm: regular Heart sounds: normal: S1, S2 Abnormal Heart Sounds: no systolic murmur, no diastolic murmur, no rub, no S3 Gallop, no S4 Gallop, no click, no other leg Peripheral Edema: bilateral: None - Gastrointestinal General gastrointestinal: soft, no tenderness - Integumentary Integumentary: no cyanotic, no jaundiced - Neurologic grossly intact - Musculoskeletal Musculoskeletal: strength equal bilaterally - Psychiatric Psychiatric: A&O x's 3, appropriate affect, intact judgment & insight Results CBC & Chem 7: 07/15/23 23:34 07/17/23 06:42 Labs: Abnormal Lab Results - Last 24 Hours (Table) 07/16/23 07/17/23 Range/Units 02:33 06:42 Chloride 111 H (98-107) mmol/L Carbon Dioxide 17 L (22-30) mmol/L Free Phenytoin <0.8 L (0.8-2.0) ug/mL Comments: CTA head and neck, and EEG reviewed CT Scan - head: report reviewed Assessment and Plan (1) History of DVT of lower extremity Current Visit: Yes Status: Acute Priority: Medium Code(s): Z86.718 - PERSONAL HISTORY OF OTHER VENOUS THROMBOSIS AND EMBOLISM SNOMED Code(s): 247996732 (2) TIA (transient ischemic attack) Current Visit: Yes Status: Acute Priority: High Code(s): G45.9 - TRANSIENT CEREBRAL ISCHEMIC ATTACK, UNSPECIFIED SNOMED Code(s): 819322579 Plan: History of DVT: -History limited, pt poor historian. Patient states he was placed on Coumadin greater than 5 years ago but is unsure what year. He reports he was started on Coumadin for unprovoked left lower extremity DVT. He states that he follows up with his control panel operator approximately once a month for INR checks but frequently misses appointments. When patient was asked why he follows up with cardiology he states for mitral valve regurgitation. -Spoke with cardiology team, patient has not followed up in their office since January 2022. Unsure at this time who is prescribing Coumadin and why he has continued on it for this length of time. In the setting of an unprovoked single DVT the typical treatment time would range from 6 months to one year, however, at this time we are unable to make anticoagulation recommendations due to limited history. Patient should continue on anticoagulation at this time and would recommend patient to follow up with prescribing provider for further recommendations. TIA: -Presented for slurred speech and syncope, neuro sx resolved -Neuro managing
--- NOTE | 2023-07-17 20:44 | P.DS ---
Providers Date of admission: 07/16/23 00:31 Attending physician: Deacon Stephen Consults: 07/16/23 00:30 Consult Physician Routine Consulting Provider: Luis Alberto Mays Consult Reason/Comments: tia Do you want consulting provider notified?: Yes Consult Physician Routine Consulting Provider: Kendra Gonzalez Consult Reason/Comments: syncop Do you want consulting provider notified?: Yes 07/17/23 08:36 Consult Physician Routine Consulting Provider: Samson Avilez Consult Reason/Comments: h/o leg dvt, anticoagulation managemente Do you want consulting provider notified?: Yes [facility]: Diagnoses: Acute syncope, rule out cardiac causes versus neurological causes Suspicious for slurred speech on admission, no slurred speech noted and no focal neurological deficits noticed on exam over the last 2 days. Suspicion of stroke/TIA is very low Significant diarrhea 1 day prior to hospitalization most likely acute gastroenteritis which could be viral. Improved now Subacute left ear ringing Bilateral thyroid nodules including 1.7 cm on the left and 1.4 cm underwrites besides other smaller nodules coronary artery disease status post CABG History of the venous thrombosis on Coumadin Hypertension Hyperlipidemia Benign prostatic hypertrophy Hospital course: This is a pleasant 78 years old male with past medical history of hyperlipidemia, hypertension, history of deep venous thrombosis on Coumadin celiac disease, BPH, coronary artery disease status post CABG Presents because of syncopal episode. Patient states that he was sleeping yesterday night when he woke up, he was drowsy and went to open the door for his granddaughter he passed out at the door steps, he was on the floor for a few minutes and workup with no confusion. No seizure-like activity Patient evaluated by poultry service technician and the neurologist. Neurologist recommended MRI of the brain but could not be done because he had stents in his carotid arteries. Neurologist recommended to continue the same dose of Dilantin and follow-up level as an outpatient with the neurologist, patient informed and he agrees. Airplane Pilot Crop Dusting also cleared The patient for discharge, poultry service technician recommended to continue with anticoagulation. Patient is on warfarin for history of DVT, his DVT was many years ago and he is not sure how many were they and he cannot remember the recommendation regarding his anticoagulation. Therefore hematology team were consulted trying to manage his anticoagulation however because history is limited to the hematology team they diverted to the medical team and poultry service technician. Airplane Pilot Crop Dusting recommended again to continue with anticoagulation. I I called anddiscussed the case with his PCP Dr. Go who stated the patient is not for noncompliance to his medication and he forgets taking Coumadin frequently and I discussed with him the recommendation of the consultants and he wants him to continue with anticoagulation but switch to a Eliquis Eliquis was described to the pharmacy his co-pay is $384 1 but then his co-pay will significantly go lower (unspecified amount of money) however I discussed with the pharmacy, and bedside nurse a cupoun of one month of frequent Eliquis. I discussed this recommendation with the patient and grandjass rodríguez at bedside with risks including but not limited to bleeding including bleeding into the brain and/or and they verbalized understanding and acceptance. At this point we think the benefits of Eliquis more than risk. -Patient also complained from chronic drinking in his left ear, patient was referred to Dr. Browning as an outpatient. Also this was discussed with Dr. go who will kindly follow-up on this - Patient also found to have bilateral thyroid nodules and he was referred to Dr. Sweet as an outpatient. Also this was discussed with Dr. go who will kindly follow-up on this Patient denies any other symptoms, patient was dressed up in his room ready to be discharged. Patient told the nurse it is not going to be discharged today he is going to leave AMA And evi Rodríguez was at bedside and I discussed the recommendation with him after patient gave me verbal consent. Hermelindo told me that he will make sure that his grandfather get into his appointments (I discussed with him all the appointments and details as below) and he'll make sure his grandfather taking his medication (he said every few days he will check on him) Patient denies any other new symptoms. Patient was cleared for discharge by all consultants. He was cleared for discharge by poultry service technician, neurologist, insight leader Problems and management plan were discussed with the patient and he verbalized understanding and acceptance Patient was found stable and can be discharged home in guarded prognosis however he needs follow-up as an outpatient. Patient was instructed to follow up with PCP Dr. Go within one week and patient agrees Patient was instructed to follow up with a neurologist Dr. Everton dempsey in 1-2 weeks, with pot liner Dr. Sweet in 1-2 weeks for his thyroid nodule. And with poultry service technician Dr. Navarrete in one week for event monitor. Physical exam Gen: patient is a AAOx3, no distress CVS: S1-S2, RRR, no murmur Lungs: B/L CTA, no wheezing Abdomen: soft, no distention, no tenderness, positive bowel sounds Extremity: no leg edema or induration Time spent more than 35 minutes urine or bowel incontinence, no tongue biting. per Records surface patient was suspected by family however patient denies any blurred vision slurred speech. He complains from left finger numbness 3 weeks, and left leg weakness and he could not specify for how long. No tingling or numbness in the legs. Patient reports very severe diarrhea yesterday, in the afternoon it was every 5 minutes with small amount. He has some abdominal pain which is resolved now. His pain was in the right upper quadrant for a few days, it was severe yesterday but not bad today and irrigated about 2/10. No vomiting, no nausea and he eats well. His been complaining of from left ear ringing on and off for the last few months. He intends to follow up with his PCP regarding this Also complains from mild headache, no significant dizziness currently. No slurred speech or blurred vision. Patient vitals are stable and afebrile Has unremarkable CBC, BMP, liver enzymes, Troponin times are negative. D-dimer is -0.50. CT of the brain: No acute process, bilateral thyroid nodules Including 1.7 cm on the left and 1.4 cm underwrites besides other smaller nodules CT of the brain: No acute intracranial process Chest x-ray: No acute process. EKG: Normal sinus rhythm at [address]-T changes, no evidence of arrhythmia or LVH or ST elevation. QTC 393 Patient Condition at Discharge: Fair Plan - Discharge Summary Discharge Rx Participant: Yes New Discharge Prescriptions: New Apixaban [Eliquis] 5 mg PO BID #60 tab Continue amLODIPine [Norvasc] 2.5 mg PO DAILY Famotidine [Pepcid] 20 mg PO BID Tamsulosin HCl [Flomax] 0.8 mg PO DAILY Phenytoin Sodium Extended [Dilantin] 200 mg PO BID Atorvastatin [Lipitor] 20 mg PO HS #30 tab Discontinued ALPRAZolam [Xanax] 0.25 - 5 mg PO TID PRN PRN Reason: Anxiety Warfarin [Coumadin] 5 mg PO DAILY Discharge Medication List Atorvastatin [Lipitor] 20 mg PO HS #30 tab 02/12/22 [Rx] Famotidine [Pepcid] 20 mg PO BID 02/12/22 [History] Phenytoin Sodium Extended [Dilantin] 200 mg PO BID 02/12/22 [History] Tamsulosin HCl [Flomax] 0.8 mg PO DAILY 02/12/22 [History] amLODIPine [Norvasc] 2.5 mg PO DAILY 02/12/22 [History] Apixaban [Eliquis] 5 mg PO BID #60 tab 07/17/23 [Rx] Follow up Appointment(s)/Referral(s): Samson Avilez MD [STAFF PHYSICIAN] - 2 Weeks (blood disease doctor for your history of leg clot) Timothy Escalante DO [Doctor of Osteopathic Medicine] - 10 Days (ear doctor) Evelyn Toscano MD [REFERRING] - 10 Days Eliecer Go [Primary Care Provider] - 1-2 days Xavier Navarrete MD [STAFF PHYSICIAN] - 1 Week (We recommend event monitor as an outpatient heart doctor ) Patient Instructions/Handouts: Syncope (DC) Activity/Diet/Wound Care/Special Instructions: Heart healthy diet Activity is restricted till you see your doctor please follow up with your primary care doctor donavan, your poultry service technician and blood disease doctor () for management of anticoagulation and duration of treatment risk of blood thinner (like eliquis and warfarin ) including but not limited to brain bleed, colon bleed , bleed from anywhere, and/or organ dysfunction and/or Discharge Disposition: HOME SELF-CARE
--- NOTE | 2023-07-26 12:44 | CA ---
Transthoracic Echo Report Name: Efraín Tinsley Age: 78 Gender: M : 1945 Exam Date: 07/16/2023 10:01 Exam Location: [place] [facility] Ht (in): 71 Wt (lb): 135 Ordering Physician: Nichelle Richardson Attending/Referring Phys: [id number], Dylan Boat [employer] Ti Harper Procedure CPT: Indications: LV function, syncope Cardiac Hx: Technical Quality: Fair Contrast 1: Total Dose (mL): Contrast 2: Total Dose (mL): MEASUREMENTS (Male / Female) Normal Values 2D ECHO LV Diastolic Diameter PLAX 4.4 cm 4.2 - 5.9 / 3.9 - 5.3 cm LV Systolic Diameter PLAX 2.7 cm IVS Diastolic Thickness 0.8 cm 0.6 - 1.0 / 0.6 - 0.9 cm LVPW Diastolic Thickness 1.1 cm 0.6 - 1.0 / 0.6 - 0.9 cm LV Relative Wall Thickness 0.4 RV Internal Dim ED PLAX 3.5 cm LVOT Diameter 2.1 cm Aortic Root Diameter 2.9 cm LA Systolic Diameter LX 2.7 cm 3.0 - 4.0 / 2.7 - 3.8 cm LV Diastolic Volume MOD BP 39.6 cm??? 67 - 155 / 56 - 104 cm??? LV Systolic Volume MOD BP 22.8 cm??? 22 - 58 / 19 - 49 cm??? LV Ejection Fraction MOD BP 42.3 % >= 55 % LV Cardiac Index MOD BP 549.1 cm???/min???m??? LV Diastolic Volume MOD 4C 50.2 cm??? LV Systolic Volume MOD 4C 25.5 cm??? LV Ejection Fraction MOD 4C 49.2 % LV Cardiac Index MOD 4C 809.2 cm???/min???m??? LV Diastolic Length 4C 6.0 cm LV Systolic Length 4C 5.1 cm LV Diastolic Volume MOD 2C 26.6 cm??? LV Systolic Volume MOD 2C 15.1 cm??? LV Ejection Fraction MOD 2C 43.3 % LV Cardiac Index MOD 2C 378.3 cm???/min???m??? LV Diastolic Length 2C 5.5 cm LV Systolic Length 2C 5.0 cm LA Volume 28.3 cm??? 18 - 58 / 22 - 52 cm??? Ascending Aorta Diameter 2.6 cm DOPPLER AV Peak Velocity 130.2 cm/s AV Peak Gradient 6.8 mmHg LVOT Peak Velocity 89.4 cm/s LVOT Peak Gradient 3.2 mmHg AV Area Cont Eq pk 2.3 cm??? MV Peak Velocity 88.5 cm/s MV Peak Gradient 3.1 mmHg MV Mean Velocity 41.0 cm/s MV Mean Gradient 0.8 mmHg MV Velocity Time Integral 40.9 cm MR Peak Velocity 333.6 cm/s MR Peak Gradient 44.5 mmHg Mitral E Point Velocity 74.0 cm/s Mitral A Point Velocity 95.5 cm/s Mitral E to A Ratio 0.8 MV Deceleration Time 244.5 ms MV E' Velocity 6.2 cm/s Mitral E to MV E' Ratio 12.0 TR Peak Velocity 219.7 cm/s TR Peak Gradient 19.3 mmHg Right Ventricular Systolic Press 27.0 mmHg PV Peak Velocity 80.9 cm/s PV Peak Gradient 2.6 mmHg FINDINGS Left Ventricle Normal LV size and wall thickness. Left ventricular ejection fraction is estimated at 55-60 %. Right Ventricle Normal right ventricular size. RVSP= 18mmhg. Right Atrium Normal right atrial size. Left Atrium Normal left atrial size. LA volume index= 16ml/m2. Mitral Valve Mild posterir MAC. Mild MR. Aortic Valve Trileaflet aortic valve. Trace AI. Tricuspid Valve Structurally normal tricuspid valve. Mild TR. Pulmonic Valve Pulmonic valve not well visualized. Trace PI. Pericardium Normal pericardium. Aorta Normal size aortic root and proximal ascending aorta. CONCLUSIONS [id number] Previewed by: Dr. Terrance Schuler MD (Electronically Signed) Final Date: 26 July 2023 12:44
== END 2023-07-17 15:53 | disposition home or self-care (01) ==
LOC: EC 23:05 → 6NMEDSUR 07-16 00:31 → 1SOBS 07-16 15:13
PROVIDERS: ADMIT Hospitalist; ATTEND Hospitalist
DX: R55 Syncope and collapse (principal); R19.7 Diarrhea, unspecified; H93.12 Tinnitus, left ear; E04.2 Nontoxic multinodular goiter; I25.10 Atherosclerotic heart disease of native coronary artery without angina pectoris; I10 Essential (primary) hypertension; E78.5 Hyperlipidemia, unspecified; N40.0 Benign prostatic hyperplasia without lower urinary tract symptoms; I65.21 Occlusion and stenosis of right carotid artery; K90.0 Celiac disease; R79.1 Abnormal coagulation profile; R10.9 Unspecified abdominal pain; R20.0 Anesthesia of skin; Z87.19 Personal history of other diseases of the digestive system; Z95.1 Presence of aortocoronary bypass graft; Z86.718 Personal history of other venous thrombosis and embolism; Z91.148 Patient's other noncompliance with medication regimen for other reason; Z86.73 Personal history of transient ischemic attack (TIA), and cerebral infarction without residual deficits; Z86.711 Personal history of pulmonary embolism; Z87.891 Personal history of nicotine dependence; Z79.01 Long term (current) use of anticoagulants; Z79.82 Long term (current) use of aspirin; Z79.899 Other long term (current) drug therapy; Z82.49 Family history of ischemic heart disease and other diseases of the circulatory system
CPT/HCPCS: 96372 ×3; 96376 ×2; 96361 ×2; 96374; 99285; 51798; 36415; 95816; 93005; 93306; 97162; 97166; 85379; 80186; 80053; 80048; 80185; 83735; 84484 ×2; 85025; 85610 ×2; 85730; 71045; 70496; 70450; 70498; G0378 ×3; J1644 ×2; J3490 ×2; Q9967